=== PATIENT | female | born 1990 | race Caucasian/White ===

== ENCOUNTER 2023-02-21 11:00 | Outpatient (REF) | payer BC, SELFPAY ==
--- OUTSIDE RECORDS SUMMARY | 2023-02-21 11:56 | XMS_ITS | CCD ---
Author Name Unknown Address [id number] [address] [place] [address] Organization [facility] Care Team Providers Care Extrusion Die Coordinator Name Role Phone YVES ., DR CHEN Primary Care Unavailable HOY ., DR CHEN Admitting Unavailable HOY ., DR CHEN Attending Unavailable HOY ., DR CHEN Consulting Unavailable RISHABH CR Consulting Unavailable HOY ., DR CHEN Primary Care Unavailable HOY ., DR CHEN Admitting Unavailable HOY ., DR CHEN Attending Unavailable HOY ., DR CHEN Consulting Unavailable ZIEBER, DR AC Reyes Consulting Unavailable HOY ., DR CHEN Primary Care Unavailable CARLOS ., DR MORE Admitting Unavailable CARLOS ., DR MORE Attending Unavailable CARLOS ., DR MORE Consulting Unavailable HOY ., DR CHEN Admitting Unavailable HOY ., DR CHEN Attending Unavailable HOY ., DR CHEN Primary Care Unavailable Allergies Allergy Classification Reported Allergen(s) Allergy Type Date of Onset Reaction(s) Facility (1 source) Codeine Drug Allergy 02-26-2016 [facility] Problems Active Problems Problem Classification Problem Date Documented Da te Episodic/Chronic Headache; including migraine (4 sources) Migraine, unspecified, not intractable, without status migrainosus; Translations: [MIGRAINE UNS NOT INTRACT W/O SM] Onset: 11-05-2021 Chronic Residual codes; unclassified (4 sources) Localized edema; Translations: [LOCALIZED EDEMA] Onset: 05-07-2022 Episodic Past or Other Problems Problem Classification Problem Date Documented Date Episodic/Chronic Immunizations and screening for infectious disease (1 source) Encounter for screening for human papillomavirus (HPV); Translations: [ENC SCREENING HUMAN PAPILLOMAVIRUS] Onset: 12-04-2021 Episodic Other screening for suspected conditions (not mental disorders or infectious disease) (4 sources) Encounter for screening for malignant neoplasm of cervix; Translations: [ENC SCREENING MALIG NEOPLASM CERV] Onset: 12-03-2021 Episodic Results Test Name Value Interpretation Reference Range Facil ity US TITO DOP LEG RTon 05-08-19 23 US TITO DOP LEG RT EXAM: US TITO DOP LEG RT HISTORY: Localized edema right lower extremity edema COMPARISON: None. TECHNIQUE: Doppler color flow as well as spectral analysis were performed of the right lower extremity. FINDINGS: There is adequate flow, compressibility, or augmentation within the visualized deep venous structures of the right lower extremity. No evidence of deep venous thrombus. IMPRESSION: 1. No deep venous thrombus Electronically authenticated by: RISHABH CR Date: 2022-05-07 15:51 Normal [facility] PAP ACOG PANEL 2: 30 to 65on 12-09-2021 . . Normal [facility] Comment on above: Result Comment: Performed at: WB Performed By: #### [id number] #### [facility] [address] [address] [address] Poli Almanza Age Gdln ACOG Testing 30-65 Normal [facility] Comment on above: Performed By: #### [id number] #### [facility] [address] [address] [address] Poli Almanza DIAGNOSIS: Comment Normal [facility] Comment on above: Result Comment: NEGATIVE FOR INTRAEPITHE LIAL LESION OR MALIGNANCY. Performed at: WB Performed By: #### [id number] #### [facility] [address] [address] [address] Poli Almanza HPV Aptima Negative Normal Negative [facility] Comment on above: Result Comment: This nucleic acid amplif ication test detects fourteen high-risk HPV types (16,18,31,33,35,39,45,51,52,56,58,59,66,68) without differentiation. Performed at: =G Performed By: #### [id number] #### [facility] [address] [address] [address] Poli Almanza Methodology: Comment Normal [facility] Comment on above: Result Comment: This liquid based ThinPr ep(R) pap test was screened with the use of an image guided system. Performed at: WB Performed By: #### [id number] #### [facility] [address] [address] [address] Poli Almanza Note: Comment [facility] Comment on above: Result Comment: The Pap smear is a scree yosef test designed to aid in the detection of premalignant and malignant conditions of the uterine cervix. It is not a diagnostic procedure and should not be used as the sole means of detecting cervical cancer. Both false-positive and false-negative reports do occur. . Performed at: WB Performed By: #### [id number] #### [facility] [address] [address] [address] Poli Almanza Performed by: Comment Normal [facility] Comment on above: Result Comment: Bernie Galan, Cytot echnologist (ASCP) Performed at: WB Performed By: #### [id number] #### [facility] [address] [place] [address] Dr. Poli Almanza Specimen adequacy: Comment [facility] Comment on above: Result Comment: Satisfactory for evaluat ion. Endocervical and/or squamous metaplastic cells (endocervical component) are present. Performed at: WB Performed By: #### [id number] #### [facility] [address] [place] [address] Dr. Poli Almanza MRI BRAIN WO CONon MRI BRAIN CON EXAMINATION: MRI BRA IN [facility], 11/05/2021 3:14 PM EDT HISTORY: Migraine ; chronic daily migraine headaches COMPARISON: None. TECHNIQUE: MRI of the brain was performed without IV contrast. FINDINGS: CEREBRUM: No edema, hemorrhage, mass, acute infarction, or inappropriate atrophy. CEREBELLUM: No edema, hemorrhage, mass, acute infarction, or inappropriate atrophy. BRAINSTEM: No edema, hemorrhage, mass, acute infarction, or inappropriate atrophy. CSF SPACES: Ventricles, cisterns, and sulci are appropriate for age. No hydrocephalus, subarachnoid hemorrhage, or mass. SKULL: No mass or other significant visible lesion. SINUSES: Limited views demonstrate no significant mucosal thickening or fluid. ORBITS: Limited views are unremarkable. OTHER: Negative. IMPRESSION: 1. Normal MRI of the brain. Electronically authenticated by: AC CASTILLO Date: 2021-11-05 18:21 Normal [facility] Encounters Encounter Date Encounter Type Care Provider Facility Start: 05-07-2022 End: 05-08-[address] GUSTAVO MARINELLI . Facility:[facility] Start: 12-03-2021 End: 12-03-[address] GUSTAVO MARINELLI . Facility[facility] Start: 11-05-2021 End: 11-06-[address] GUSTAVO MARINELLI . Facility[facility] Payers Date Payer Category Payer Unknown [id number] 2.16.84 [id number] 1988 Unknown [id number] 2.16.84 [id number] 1988 Unknown [id number] 2.16.84 [id number] 1988 Unknown [id number] 2.16.84 [id number] 1959 Self-pay 1961 Unknown [id number] Summary Purpose Family History No Family History Records Found Advance Directives No Advanced Directives Records Found Additional Source Comments INFORMATION SOURCE (unrecogn ized section and content) DATE CREATED AUTHOR 05/14/2022 [facility] FOR RECORDS PERTAINING TO PATIENTS WHO ARE OR HAVE BEEN ENROLLED IN A CHEMICAL DEPENDENCY/SUBSTANCEABUSE PROGRAM, SOME INFORMATION MAY BE OMITTED. This clinical summary was aggregated from multiple sources. Caution should be exercised in using it in the provision of clinical care. This summary normalizes information from multiple sources, and as a consequence, information in this document may materially change the coding, format and clinical context of patient data. In addition, data may be omitted in some cases. CLINICAL DECISIONS SHOULD BE BASED ON THE PRIMARY CLINICAL RECORDS. [facility] [employer] provides no warranty or guarantee of the accuracy or completeness of information in this document.
[2023-02-21 11:59] LABS: SARS-CoV-2 Ag NEGATIVE (NEGATIVE)
[2023-02-21 14:26] LABS: SARS-CoV-2 NAA NOT DETECTED (NOT DETECTE)
== END 2023-02-21 11:01 | disposition home or self-care (01) ==
LOC: LAB 11:00
PROVIDERS: PCP Family Medicine; Visit Provider Family Medicine
DX: R09.81 Nasal congestion (principal); J34.89 Other specified disorders of nose and nasal sinuses
CPT/HCPCS: 87635; 87811

== ENCOUNTER 2023-04-16 15:45 | Outpatient (OUT) | payer BC, SELFPAY ==
--- OUTSIDE RECORDS SUMMARY | 2023-04-16 15:50 | XMS_ITS | CCD ---
Author Name Unknown Address Formerly [facility] [email or web address] [facility] [address] [place] [address] Organization [facility] Care Team Providers Care Medical Records Receptionist Name Role Phone YVES ., DR CHEN [...] HOY ., DR CHEN Primary Care Unavailable ALISA Preston Attending Provider Karissa Preston Attending Unavailable Karissa Preston Admitting Unavailable ARIANNA ORELLANA Attending Unavailable Unavailable Primary Care Provider Unavailabl e Allergies Allergy Classification Reported Allergen(s) Allergy Type Date of Onset Reaction(s) Facility (1 source) Codeine Drug Allergy 02-26-2016 [facility] Repository (1 source) Acetaminophen Drug Allergy 03-28-2023 [facility] Repository (1 source) Codeine Drug Allergy 03-28-2023 [facility] Repository (1 source) HYDROcodone Drug Allergy 03-28-2023 [facility] Repository (1 source) Codeine Drug Allergy 11-08-2017 Swelling [facility] Medications Current Medications Medication Drug Class(es) Dates Sig (Normalized) Sig (Original) ethinyl estradiol 0.035 mg / norgestimate 0.25 mg oral tablet (2 sources) Progestin, Estrogen Start: 12-16-2022 End: 04-03-2023 take 1 tablet by mouth in the morning Coos-Linyah 0.25-35 MG-MCG tablet Indications: Uses control Take 1 tablet by mouth in the morning. 28 tablet 12 12/16/2022 Active fluconazole 150 mg oral tablet (1 source) Azole Antifungal Start: 04-03-2023 End: 04-03-2023 take 1 tablet by mouth once, then take 1 tablet by mouth once fluconazole (Diflucan) 150 MG tablet Indications: Yeast infection Take 1 tablet (150 mg) by mouth 1 (one) time for 1 dose This is a 1 time dose, take single tablet by mouth. 1 tablet 1 04/03/2023 04/03/2023 Active metroNIDAZOLE 500 mg oral tablet (1 source) Nitroimidazole Antimicrobial Start: 04-03-2023 End: 04-10-2023 take 1 tablet by mouth in the morning metroNIDAZOLE (Flagyl) 500 MG tablet Indications: Vaginal discharge Take 1 tablet (500 mg) by mouth in the morning and 1 tablet (500 mg) before bedtime. Do all this for 7 days. Do not drink alcohol while taking this medication. 14 tablet 0 04/03/2023 04/10/2023 Active Problems Active Problems Problem Classification Problem Date Documented Date Episodic/Chronic Genitourinary symptoms and ill-defined conditions (1 source) Dysuria; Translations: [Dysuria] 04-03-2023 Episodic Headache; including migraine (4 sources) Migraine, unspecified, not intractable, without status migrainosus; Translations: [MIGRAINE UNS NOT INTRACT W/O SM] Onset: 11-05-2021 Chronic Immunizations and screening for infectious disease (2 sources) Encounter for screening for human papillomavirus (HPV); Translations: [Exposure to sexually transmissible disorder] Onset: 12-04-2021 04-03-2023 Episodic Mycoses (1 source) Mycosis; Translations: [Candidiasis, unspecified] 04-03-2023 Episodic Other female genital disorders (1 source) Other specified noninflammatory disorders of vagina; Translations: [Other specified noninflammatory disorders of vagina] Onset: 03-28-2023 Episodic Other female genital disorders (1 source) Vaginal discharge; Translations: [Other specified noninflammatory disorders of vagina] 04-03-2023 Episodic Residual codes; unclassified (4 sources) Localized edema; Translations: [LOCALIZED EDEMA] Onset: 05-07-2022 Episodic Urinary tract infections (1 source) Urinary tract infectious disease; Translations: [Urinary tract infection, site not specified] 04-03-2023 Episodic Past or Other Problems Problem Classification Problem Date Documented Da te Episodic/Chronic Other screening for suspected conditions (not mental disorders or infectious disease) (4 sources) Encounter for screening for malignant neoplasm of cervix; Translations: [ENC SCREENING MALIG NEOPLASM CERV] Onset: 12-03-2021 Episodic Results Test Name Value Interpretation Reference Range Facility Urinalysis macro (dipstick) panel (U)on 04-03-2023 Bilirubin, UA Negative Negative - 4(70) +++ mg/dL [facility] Blood, UA Negative Negative - 50 Fred/mcL [facility] Clarity, UA Clear [facility] re Color, UA Yellow [facility] Health[facility] Glucose, UA Negative Negative - 1999(110) ++++ mg/dL [facility] Interpretation and review of laboratory results Normal [facility] Ketones, UA Negative Negative - 160(16) ++++ mg/dL [facility] Leukocytes, UA Negative Negative - 500+++ Jenna/mcL [facility] Nitrite, UA Negative Negative - Positive [facility] pH, UA 6.5 5 - 9 [facility] Health[facility] Protein, UA Negative Negative - 1999(20) ++++ mg/dL [facility] Spec Grav, UA 1.020 1 - 1.03 [facility] Urobilinogen, UA 0.2 0.2 - 12 mg/dL [facility] Bacteria Vaginosis, NAAon Atopobium Vaginae Low - 0 Normal . [facility] Comment on above: Order Comment: Reaso n for Exam Vaginal discharge Performed By: #### C ANDIDA,NA, VAGINOSIS #### [facility] , BVAB2 Low - 0 Normal . [facility] Comment on above: Order Comment: Reaso n for Exam Vaginal discharge Performed By: #### C ANDIDA,NA, VAGINOSIS #### [facility] , Megasphaera Low - 0 Normal . [facility] Comment on above: Order Comment: Reaso n for Exam Vaginal discharge Result Comment: Calc ulate total score by adding the 3 individual bacterial vaginosis (BV) marker scores together. Total score is interpreted as follows: Total score 0-1: Indicates the absence of BV. Total score 2: Indeterminate for BV. Additional clinical data should be evaluated to establish a diagnosis. Total score 3-6: Indicates the presence of BV. This test was developed and its performance characteristics determined by [facility]. It has not been cleared or approved by the Food and Drug Administration. Performed By: #### C ANDIDA,NA, VAGINOSIS #### [facility] , Megan Albicans+Glabrata, N AAon 03-28-2023 Megan Albicans, KEZIA Negative Normal Negative [facility] Comment on above: Order Comment: Reaso n for Exam Vaginal discharge Result Comment: This test was developed and its performance characteristics determined by [facility]. It has not been cleared or approved by the Food and Drug Administration. Performed By: #### C ANDIDA,NA, VAGINOSIS #### [facility] , Megan Glabrata, KEZIA Negative Normal Negative [facility] Comment on above: Order Comment: Reaso n for Exam Vaginal discharge Result Comment: This test was developed and its performance characteristics determined by [facility]. It has not been cleared or approved by the Food and Drug Administration. Performed at: =[address] [id number] [employer] Custodian: Anna Lopez MD, Phone: [phone] PERFORMED BY: [facility] [address] [place] [address] PATHOLOGIST DOUGH PANNER FLAVIA HERNANDEZ M.D. Performed By: #### C ANDIDANA, VAGINOSIS #### [facility] , US TITO DOP LEG RTon 05-08-19 US TITO DOP LEG RT EXAM: US [...] by: RISHABH CR Date: 2022-05-07 15:51 Normal [facility] PAP ACOG PANEL 2: 30 to 65on 12-09-2021 . . Normal [facility] Comment on above: Result Comment: Perf ormed at: WB Performed By: #### [id number] #### [facility] [address] [address] [address] Poli Almanza Age Gdln ACOG Testing 30-65 Normal [facility] Comment on above: Performed By: #### [id number] #### [facility] [address] [address] [address] Poli Almanza DIAGNOSIS: Comment Normal [facility] Comment on above: Result Comment: NEGA TIVE FOR INTRAEPITHELIAL LESION OR MALIGNANCY. Performed at: WB Performed By: #### [id number] #### [facility] [address] [place] [address] Dr. Poli Almanza HPV Aptima Negative Normal Negative [facility] Comment on above: Result Comment: This nucleic acid amplification test detects fourteen high-risk HPV types (16,18,31,33,35,39,45,51,52,56,58,59,66,68) without differentiation. Performed at: =G Performed By: #### [id number] #### [facility] [address] [address] [address] Poli Almanza Methodology: Comment Normal [facility] Comment on above: Result Comment: This liquid based ThinPrep(R) pap test was screened with the use of an image guided system. Performed at: WB Performed By: #### [id number] #### [facility] [address] [address] [address] Poli Almanza Note: Comment Normal [facility] Comment on above: Result Comment: The Pap smear is a screening test designed to aid in the detection of premalignant and malignant conditions of the uterine cervix. It is not a diagnostic procedure and should not be used as the sole means of detecting cervical cancer. Both false-positive and false-negative reports do occur. . Performed at: WB Performed By: #### [id number] #### [facility] [address] [place], [place] [address] Dr. Poli Almanza Performed by: Comment Normal [facility] Comment on above: Result Comment: Callum Myles, Workers Compensation Claims Assistant (ASCP) Performed at: WB Performed By: #### [id number] #### [facility] [address] [place], [place] [address] Dr. Poli Almanza Specimen adequacy: Comment Normal [facility] Comment on above: Result Comment: Sati sfactory for evaluation. Endocervical and/or squamous metaplastic cells (endocervical component) are present. Performed at: WB Performed By: #### [id number] #### [facility] [address] [address] [address] Poli Almanza MRI BRAIN WO CONon MRI BRAIN WO CON EXAMINATION: MRI BRAIN WO CON, 11/05/2021 3:14 PM EDT HISTORY: Migraine ; [...] by: AC CASTILLO Date: 2021-11-05 18:21 Normal [facility] Vital Signs Date Time Vital Sign Value Performing Clinician Hannah goyal 04-03-2023 11:050500 Body height 154.9 cm Arianna SANCHEZ Work Phone: [facility] 04-03-2023 11:05-0500 Body mass index (BMI) [Ratio] 26.26 kg/m2 Arianna SANCHEZ Work Phone: [facility] 04-03-2023 11:05-0500 Body weight 63.05 kg Arianna SANCHEZ Work Phone: [facility] 04-03-2023 11:05-0500 Diastolic blood pressure 78 mm[Hg] Arianna SANCHEZ Work Phone: [facility] 04-03-2023 11:05-0500 Systolic blood pressure 116 mm[Hg] Arianna SANCHEZ Work Phone: [facility] Healthcare Encounters Encounter Date Encounter Type Care Provider Facility Start: 04-03-2023 End: 04-03-2023 ambulatory ARIANNA ORELLANA Not Available Start: 04-03-2023 End: 04-03-2023 Office outpatient visit 15 minutes Arianna SANCHEZ Work Phone: [facility] OB Comment on above: Vaginal discharge; STD exposure; Urinary tract infection without hematuria, site unspecified; Dysuria; Yeast infection Start: 03-28-2023 End: 03-28-2023 ambulatory Karissa Preston Facility:[facility] Start: 03-28-2023 End: 03-28-2023 ambulatory ALISA Preston Work Phone: [facility] Work Phone: Start: 03-28-2023 End: 03-28-2023 Departed Referred ALISA Preston Work Phone: [facility] [place] Work Phone: Start: 05-07-2022 End: 05-08-[address] GUSTAVO MARINELLI . Facility:[facility] Start: 12-03-2021 End: 12-03-[address] GUSTAVO MARINELLI . Facility:[facility] Start: 11-05-2021 End: 11-06-[address] GUTSAVO MARINELLI . Facility:[facility] Procedures Date Procedure Procedure Detail Performing Clinician Start: 04-03-2023 Urnls dip stick/tabl et rgnt non-auto w/o micrscp Arianna SANCHEZ Work Phone: Plan of Treatment Date Care Activity Detail Author Start: 06-11-2023 End: 06-11-2023 Patient encounter procedure 06/11/2023 3:00 PM EDT Office Visit [facility] [address] [place] [id number] Danial Dawson, DO [address] [place] [address] [place] [address] [facility] Atopobium vaginae DN A [Presence] in Vaginal fluid by KEZIA with probe detection [facility] Bacteria identified in Urine by Culture Urine culture Microbiology Routine Dysuria Ordered: 04/03/2023 [facility] Comment on above: Ordered: 04/03/2023 Bacterial vaginosis associated bacterium 2 DNA [Presence] in Vaginal fluid by KEZIA with probe detection [facility] CHLAMYDIA TRACHOMATI S (GENITO/STI) CHLAMYDIA TRACHOMATIS (GENITO/STI) Lab Routine STD exposure Ordered: 04/03/2023 [facility] Comment on above: Ordered: 04/03/2023 Megasphaera sp type 1 DNA [Presence] in Vaginal fluid by KEZIA with probe detection [facility] Neisseria gonorrhoea e DNA [Presence] in Unspecified specimen by KEZIA with probe detection Neisseria gonorrhea DNA probe, direct Lab Routine STD exposure Ordered: 04/03/2023 [facility] Comment on above: Ordered: 04/03/2023 SURESWAB(R) ADVANCED VAGINITIS PLUS, TMA SURESWAB(R) ADVANCED VAGINITIS PLUS, TMA Pathology and Cytology Routine Vaginal discharge Ordered: 04/03/2023 [facility] Work Phone: Comment on above: Ordered: 04/03/2023 [facility] Payers Date Payer Category Payer Unknown BCBS BCBS [id number] 2017-Present [phone] [address] [place] [address] [id number] 1988 Unknown [id number] 1988 Unknown [id number] 1988 Unknown [id number] 1988 Unknown [id number] 1988 Unknown [id number] 1959 Self-pay 1961 Unknown [id number] Unknown Selena BC/BS [id number] Unknown [id number] Social History Date Type Detail Facility Tobacco smoking status TNIS Unknown if ever smoked [facility] Work Phone: Start: 1990 Sex Assigned At Female F [facility] Start: 11-27-2022 Tobacco smoking status NHIS Never smoked tobacco [facility] Start: 11-27-2022 Tobacco use and exposure Smokeless tobacco non-user [facility] Start: 11-27-2022 Alcohol intake Lifetime non-d brissa (finding) [facility] Start: 11-27-2022 History of Social function [facility] Start: 11-27-2022 Tobacco use panel [facility] Start: 11-27-2022 Alcohol Comment caffeine: 1-2 cups per day coffee, tea [facility] Start: 12-07-2022 Gender identity Identifies as female gender (finding) [facility] Healthcare History of Present illness Narrative 04-03-2023 LAURA Vela - 04/03/2023 11:10 AM EST Note Date & Type Note Facility 04-03-2023 History of Presen t illness Narrative Reason for Appointment: Patient ID: Erica Hope is a 33 y.o. female who presents for yeast infection/UTI Patient presents today for Acute Visit appointment. Current Medications: has a current medication list which includes the following prescription(s): mono-linyah. Medical History: Active Ambulatory Problems Diagnosis Date Noted No Active Ambulatory Problems Resolved Ambulatory Problems Diagnosis Date Noted No Resolved Ambulatory Problems Past Medical History: Diagnosis Date Asthma (CMS/[facility]) Cerebrovascular accident (CMS/[facility]) H/O recurrent urinary tract infection (normal spontaneous vaginal delivery) 2014 S/P T&A (status post tonsillectomy and adenoidectomy) 2002 Seasonal allergies Spider veins Varicella zoster Family History Problem Relation Name Age of Onset Arthritis Mother Arthritis Father Microcephaly Son Social History Tobacco Use Smoking status: Never Smokeless tobacco: Never Substance Use Topics Alcohol use: Never Comment: caffeine: 1-2 cups per day coffee, tea Drug use: Never Past Surgical History: Procedure Laterality Date [place] MEDICATION MANAGEMENT asthma [place] MEDICATION MANAGEMENT Zyrtec- seasonal allergies VAGINAL DELIVERY 2014 - 4th degree Allergies Allergen Reactions Codeine Swelling Other Reaction(s): Unknown Review of Systems: Review of Systems Constitutional: Negative. HENT: Negative. Eyes: Negative. Respiratory: Negative. Cardiovascular: Negative. Gastrointestinal: Negative. Genitourinary: Negative. Musculoskeletal: Negative. Skin: Negative. Neurological: Negative. All other systems reviewed and are negative. Hematological: Negative. Endocrine: Negative. Allergic/Immunologic: Negative. Objective Physical Exam Constitutional: Appearance: Normal appearance. She is normal weight. Genitourinary: Vaginal discharge and bleeding present. Right Adnexa: not tender and no mass present. Left Adnexa: not tender and no mass present. Cervical discharge present. Cervical exam comments: menstrating. HENT: Head: Normocephalic. Cardiovascular: Rate and Rhythm: Normal rate. Pulses: Normal pulses. Pulmonary: Effort: Pulmonary effort is normal. Breath sounds: Normal breath sounds. Abdominal: Palpations: Abdomen is soft. Musculoskeletal: General: Normal range of motion. Neurological: General: No focal deficit present. Mental Status: She is alert and oriented to person, place, and time. Psychiatric: Mood and Affect: Mood normal. Behavior: Behavior normal. Thought Content: Thought content normal. Judgment: Judgment normal. Vitals and nursing note reviewed. Vitals: Estimated body mass index is 26.26 kg/m as calculated from the following: Height as of this encounter: 5' 1 . Weight as of this encounter: 139 lb. BP: 116/78 Patient's last menstrual period was 04/02/2023. Assessment/Plan Encounter Diagnoses Name Primary? Vaginal discharge STD exposure Urinary tract infection without hematuria, site unspecified Dysuria Pt presents today complaining of burning with urination and vaginal discharge. She was seen at an urgent care about a week ago and was treated for a yeast infection with diflucan. Pt still complains of symptoms. She said they sent her urine out for culture but it came back neg. Cultures obtained today. Urine sent out for culture. Flagyl and diflucan sent to pharmacy. Pt will be notified of results if further treatment necessary Documented by Angela Guido MA on behalf of: LAURA Vela documented in this encounter [facility] Evaluation note Note Date & Type Note Facility [facility] Evaluation note Note Date & Type Note Facility Evaluation note Diagnosis Vaginal discharge Leukorrhea, not specified as infective STD exposure Urinary tract infection without hematuria, site unspecified Dysuria Yeast infection documented in this encounter [facility] Summary Purpose Family History No Family History Records FoundNo Family History Records FoundNo Family History Records Found Advance Directives No Advanced Directives Records FoundNo Advanced Directives Records FoundNo Advanced Directives Records Found Chief Complaint and Reason for Visit Chief Complaint Vaginal discharge Additional Source Comments INFORMATION SOURCE (unrecogn ized section and content) DATE CREATED AUTHOR 05/14/2022 [facility] DATE CREATED AUTHOR AUTHOR'S ORGANIZ ATION 04/04/2023 [facility] DATE CREATED AUTHOR AUTHOR'S ORGANIZ ATION 04/04/2023 [facility] [employer] Care Teams (unrecognized sec tion and content) Team Status: Inactive Member Role Status Dates Karissa Preston APRN Attending Provider Active Start: March 28, 2023 End: March 28, 2023 Goals (unrecognized section and content) Goals may be documented in a n alternate section Reason for Visit (unrecogniz ed section and content) Reason Comments yeast infection/UTI FOR RECORDS PERTAINING TO PATIENTS WHO ARE [...] BE BASED ON THE PRIMARY CLINICAL RECORDS. [facility]. provides no warranty or guarantee of the accuracy or completeness of information in this document.
[2023-04-16 16:28] LABS: Estimated Average Glucose 103 mg/dL; Glycohemoglobin A1C 5.2 % (4.5-6.2)
[2023-04-16 16:54] LABS: Free T3 2.66 pg/mL (2.18-3.98); Glucose 83 mg/dL (74-106); Thyroid Stimulating Hormone 2.535 uIU/mL (0.358-3.740)
[2023-04-18 08:12] LABS: Estradiol <5.0 pg/mL (.); Progesterone <0.1 ng/mL (.); Thyroid Peroxidase (TPO) Ab 13 IU/mL (0-34)
[2023-04-18 11:10] LABS: C-Peptide, Serum 2.7 ng/mL (1.1-4.4); Insulin 9.7 uIU/mL (2.6-24.9)
[2023-04-18 16:09] LABS: Thyroglobulin Antibody <1.0 IU/mL (0.0-0.9)
[2023-04-21 16:09] LABS: Estrone, Serum 22 pg/mL (27-231)
[2023-04-23 00:07] LABS: Reverse T3, Serum 21.1 ng/dL (9.2-24.1)
[2023-04-23 17:10] LABS: Free Testosterone(Direct) <0.2 pg/mL (0.0-4.2); Testosterone 3 ng/dL (8-60)
[2023-04-24 06:09] LABS: Serotonin, Serum 81 ng/mL (31-207)
[2023-04-24 18:10] LABS: Cortisol, Free Dialysis, LCMS 0.175 ug/dL (.)
[2023-04-27 12:07] LABS: Thyroglobulin (TG-RIA) 4.4 ng/mL (.)
== END 2023-04-16 15:46 | disposition home or self-care (01) ==
LOC: LAB 15:45
PROVIDERS: PCP Family Medicine; Visit Provider Obstetrics & Gynecology
DX: E34.9 Endocrine disorder, unspecified (principal)
CPT/HCPCS: 36415; 82306; 82530; 82627; 82670; 82679; 82728; 82947; 83036; 83525; 84144; 84260; 84270; 84402; 84403; 84432; 84436; 84439; 84443; 84481; 84482; 84681; 86376; 86800

== ENCOUNTER 2023-06-11 20:26 | Outpatient (REF) | payer BC, SELFPAY ==
--- OUTSIDE RECORDS SUMMARY | 2023-06-11 20:34 | XMS_ITS | CCD ---
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 Name Role Phone YVES ., DR CHEN [...] Facility (1 source) Codeine Drug Allergy 02-26-2016 [facility] Repository (1 source) Acetaminophen Drug Allergy 03-28-2023 [facility] Repository (1 source) Codeine Drug Allergy 03-28-2023 [facility] Repository (1 source) HYDROcodone Drug Allergy 03-28-2023 [facility] Repository (1 source) Codeine Drug Allergy 11-08-2017 [facility] Medications Current Medications Medication Drug Class(es) Dates Sig (Normalized) Sig (Original) ethinyl estradiol 0.035 mg / norgestimate 0.25 mg oral tablet (2 sources) Progestin, Estrogen Start: 12-16-2022 End: 02-08-2024 take 1 tablet by mouth in the morning [place] 0.25-35 MG-MCG tablet Indications: Uses control Take [...] UA Negative Negative - 4(70) +++ mg/dL [facility] Blood, UA Negative Negative - 50 Fred/mcL [facility] Clarity, UA Clear [facility] Healthpr re Color, UA Yellow [facility] Healthcar [facility] Glucose, UA Negative Negative - 1999(110) ++++ mg/dL [facility] Interpretation and review of laboratory results Normal [facility] Ketones, UA Negative Negative - 160(16) ++++ mg/dL [facility] Leukocytes, UA Negative Negative - 500+++ Jenna/mcL [facility] Nitrite, UA Negative Negative - Positive [facility] pH, UA 6.5 5 - 9 [facility] Protein, UA Negative Negative - 1999(20) ++++ mg/dL [facility] Spec Grav, UA 1.020 1 - 1.03 [facility] Urobilinogen, UA 0.2 0.2 - 12 mg/dL [facility] Bacteria Vaginosis, NAAon Atopobium Vaginae Low - 0 Normal . [facility] Comment on above: Order Comment: Reaso n for Exam Vaginal discharge Performed By: #### C ANDIDA,NA, VAGINOSIS #### [facility] , BVAB2 Low - 0 Normal . [facility] Comment on above: Order Comment: Reaso n for Exam Vaginal discharge Performed By: #### C ANDIDA,NA, VAGINOSIS #### [facility] , Megasphaera Low - 0 Normal . [facility] Comment on above: Order Comment: Reaso n [...] developed and its performance characteristics determined by [employer]. It has not been cleared or approved by the Food and Drug Administration. Performed By: #### C ANDIDA,NA, VAGINOSIS #### [facility] , Megan Albicans+Glabrata, N AAon 03-28-2023 Megan Albicans, KEZIA Negative Normal Negative [facility] Comment on above: Order Comment: Reaso n for Exam Vaginal discharge Result Comment: This test was developed and its performance characteristics determined by [employer]. It has not been cleared or approved by the Food and Drug Administration. Performed By: #### C ANDIDA,NA, VAGINOSIS #### [facility] , Megan Glabrata, KEZIA Negative Normal Negative [facility] Comment on above: Order Comment: Reaso n for Exam Vaginal discharge Result Comment: This test was developed and its performance characteristics determined by [employer]. It has not been cleared or approved by the Food and Drug Administration. Performed at: =[facility] [employer] [id number] [employer] Operator: Anna Lopez MD, Phone: [phone] PERFORMED BY: [facility] [address] [place] [address] REPORTER FLAVIA HERNANDEZ M.D. Performed By: #### C ANDIDANA, VAGINOSIS #### [facility] , [place] TITO DOP LEG RTon 05-08-19 23 [...] by: RISHABH CR Date: 2022-05-07 15:51 Normal [facility] PAP ACOG PANEL 2: 30 to 65on 12-09-2021 . . Normal [facility] Comment on above: Result Comment: Perf ormed at: WB Performed By: #### [id number] #### [facility] [address] [place] [address] Dr. Poli Almanza Age Gdln ACOG Testing 30-65 Normal [facility] Comment on above: Performed By: #### [id number] #### [facility] [address] [address] [address] Poli Almanza DIAGNOSIS: Comment Normal [facility] Comment on above: Result Comment: NEGA TIVE FOR INTRAEPITHELIAL LESION OR MALIGNANCY. Performed at: WB Performed By: #### [id number] #### [facility] [address] [place] [address] Dr. Poli Almanza HPV Aptima Negative Normal Negative [facility] Comment on above: Result Comment: This nucleic acid amplification test detects fourteen high-risk HPV types (16,18,31,33,35,39,45,51,52,56,58,59,66,68) without differentiation. Performed at: =G Performed By: #### [id number] #### [facility] [address] [place] [address] Dr. Poli Almanza Methodology: Comment Normal [facility] Comment on above: Result Comment: This liquid based ThinPrep(R) pap test was screened with the use of an image guided system. Performed at: WB Performed By: #### [id number] #### [facility] [address] [place] [address] Dr. Poli Almanza Note: Comment Normal [facility] Comment on above: Result Comment: The Pap smear is a screening test designed to aid in the detection of premalignant and malignant conditions of the uterine cervix. It is not a diagnostic procedure and should not be used as the sole means of detecting cervical cancer. Both false-positive and false-negative reports do occur. . Performed at: WB Performed By: #### [id number] #### [facility] [address] [place] [address] Dr. Poli Almanza Performed by: Comment Normal [facility] Comment on above: Result Comment: Callum Myles, Senior Staff Consultant (ASCP) Performed at: WB Performed By: #### [id number] #### [facility] [address] [address] [address] Poli Almanza Specimen adequacy: Comment Normal [facility] Comment on above: Result Comment: Sati sfactory for evaluation. Endocervical and/or squamous metaplastic cells (endocervical component) are present. Performed at: WB Performed By: #### [id number] #### [facility] [address] [place], [place] [address] Dr. Poli Almanza MRI BRAIN WO CONon [...] by: AC CASTILLO Date: 2021-11-05 18:21 Normal [facility] Vital Signs Date Time Vital Sign Value Performing Clinician Hannah lity 04-03-2023 11:05-0500 Body height 154.9 cm Arianna SANCHEZ Work Phone: [facility] 04-03-2023 11:05-0500 Body mass index (BMI) [Ratio] 26.26 kg/m2 Arianna SANCHEZ Work Phone: [facility] 04-03-2023 11:05-0500 Body weight 63.05 kg Arianna SANCHEZ Work Phone: [facility] 04-03-2023 11:05-0500 Diastolic blood pressure 78 mm[Hg] Arianna SANCHEZ Work Phone: [facility] 04-03-2023 11:05-0500 Systolic blood pressure 116 mm[Hg] Arianna SANCHEZ Work Phone: [facility] Encounters Encounter Date Encounter Type Care Provider Facility Start: 04-03-2023 End: 04-03-2023 ambulatory ARIANNA ORELLANA Not Available Start: 04-03-2023 End: 04-03-2023 Office outpatient visit 15 minutes Arianna SANCHEZ Work Phone: [facility] Comment on above: Vaginal discharge; STD exposure; Urinary tract infection without hematuria, site unspecified; Dysuria; Yeast infection Start: 03-28-2023 End: 03-28-2023 ambulatory Karissa Preston Facility:[facility] Start: 03-28-2023 End: 03-28-2023 ambulatory ALISA Preston Work Phone: [facility] Work Phone: Start: 03-28-2023 End: 03-28-2023 Departed Referred ALISA Preston Work Phone: [facility] [place] Work Phone: Start: 05-07-2022 End: 05-08-[address] GUSTAVO MARINELLI . Facility: Start: 12-03-2021 End: 12-03-[address] GUSTAVO MARINELLI . Facility: Start: 11-05-2021 End: 11-06-[address] GUSTAVO MARINELLI . Facility: Procedures Date Procedure Procedure Detail Performing Clinician Start: 04-03-2023 Urnls dip stick/tabl et rgnt non-auto w/o micrscp Arianna SANCHEZ Work Phone: Plan of Treatment Date Care Activity Detail Author Start: 06-11-2023 End: 06-11-2023 Patient encounter procedure 06/11/2023 3:00 PM EDT Office Visit [facility] [address] [place] [address] Danial Dawson, DO [address] [place] [address] [facility] Atopobium vaginae DN A [Presence] in Vaginal fluid by KEZIA with probe detection [facility] Bacteria identified in Urine by Culture Urine culture Microbiology Routine Dysuria Ordered: 04/03/2023 [facility] Comment on above: Ordered: 04/03/2023 Bacterial vaginosis associated bacterium 2 DNA [Presence] in Vaginal fluid by KEZIA with probe detection [facility] CHLAMYDIA TRACHOMATI S (GENITO/STI) CHLAMYDIA TRACHOMATIS (GENITO/STI) Lab Routine STD exposure Ordered: 04/03/2023 [facility] Comment on above: Ordered: 04/03/2023 Megasphaera sp type 1 DNA [Presence] in Vaginal fluid by KEZIA with probe detection [facility] Neisseria gonorrhoea e DNA [Presence] in Unspecified specimen by KEZIA with probe detection Neisseria gonorrhea DNA probe, direct Lab Routine STD exposure Ordered: 04/03/2023 [facility] Comment on above: Ordered: 04/03/2023 SURESWAB(R) ADVANCED VAGINITIS PLUS, TMA SURESWAB(R) ADVANCED VAGINITIS PLUS, TMA Pathology and Cytology Routine Vaginal discharge Ordered: 04/03/2023 [facility] Work Phone: Comment on above: Ordered: 04/03/2023 [facility] Payers Date Payer Category Payer Unknown BCBS BCBS [id number] 2017-Present [phone] [address] [place] [address] [id number] 1988 Unknown [id number] 1988 Unknown [id number] 1988 Unknown [id number] 1988 Unknown [id number] 1988 Unknown [id number] 1961 Self-pay 1961 Unknown [id number] Unknown Selena BC/BS [id number] Unknown [id number] Social History Date Type Detail Facility Tobacco smoking status NHIS Unknown if ever smoked [facility] Work Phone: Start: 1990 Sex Assigned At Female F [facility] Start: 11-27-2022 Tobacco smoking status [...] Gender identity Identifies as female gender (finding) [facility] History of Present illness Narrative 04-03-2023 [...] Problems Past Medical History: Diagnosis Date Asthma (CMS/HCC) Cerebrovascular accident (CMS/HCC) H/O recurrent urinary tract infection (normal spontaneous [...] Never Past Surgical History: Procedure Laterality Date [place] MEDICATION [place] asthma [place] Zyrtec- seasonal allergies VAGINAL DELIVERY [...] Note Facility Evaluation note No assessment information availa [facility] Work Phone: Evaluation note Note Date & [...] and content) DATE CREATED AUTHOR 05/14/2022 [facility] DATE CREATED AUTHOR AUTHOR'S ORGANIZ ATION 04/04/2023 [facility] DATE CREATED AUTHOR AUTHOR'S ORGANIZ ATION 04/04/2023 [facility] EPIC Care Teams (unrecognized sec [...] BE BASED ON THE PRIMARY CLINICAL RECORDS. [facility] [employer] provides no warranty or guarantee of the accuracy or completeness of information in this document.
[2023-06-17 14:09] LABS: Age Gdln ACOG Testing Note (.); HPV Aptima Negative (Negative); IGP, Aptima HPV, rfx 16/18,45 Note (.)
== END 2023-06-11 20:27 | disposition home or self-care (01) ==
LOC: LAB 20:26
PROVIDERS: PCP Family Medicine; Visit Provider Obstetrics & Gynecology
DX: Z01.419 Encounter for gynecological examination (general) (routine) without abnormal findings (principal)
CPT/HCPCS: 87624; G0145

== ENCOUNTER 2024-06-16 20:18 | Outpatient (REF) | payer BC, SELFPAY ==
[2024-06-21 16:08] LABS: Age Gdln ACOG Testing Note (.); HPV Aptima Negative (Negative); IGP, Aptima HPV, rfx 16/18,45 Note (.)
== END 2024-06-16 20:19 | disposition home or self-care (01) ==
LOC: LAB 20:18
PROVIDERS: PCP Family Medicine; Visit Provider Obstetrics & Gynecology
DX: Z01.419 Encounter for gynecological examination (general) (routine) without abnormal findings (principal)
CPT/HCPCS: 87624; 88175

== ENCOUNTER 2024-10-11 16:54 | Outpatient (OUT) | payer BC, SELFPAY ==
--- OUTSIDE RECORDS SUMMARY | 2024-10-05 10:55 | XMS_ITS ---
Author Organization [facility] [place] Address [address] [place] [address] Care Team Providers Care Contracts Law Professor Name Role Phone Sandeep Jimenez Primary Care Provider REASON FOR VISIT rf emgality- NEEDS PA Medications Medication SIG (Take, Route, Fr equency, Duration) Notes Start Date End Date Status Emgality 120 MG/ML inject 120 mg Subcut aneous monthly for 30 days 1 syringe 10/03/2022 Active Encounters Encounter Location Date Provider Diagnosis [address] [address] 10/05/2024 Sandeep Jimenez Plan Of Treatment Medication Medication Name Sig Start Date Stop Date Notes Emgality 120 MG/ML inject 120 mg Subcut aneous monthly for 30 days 10/03/2022 1 syringe Progress Notes * Erica HOPE ADOB:[birth year] (34 yo F)Acc No.[id number]:10/05/2024 Patient: Erica BRODERICK :1990 A ge:34 Y S ex:Female Address:[address] [place], [address] * Refills Refill Emgality Solution Auto-injector, 120 MG/ML, Subcutaneous, 1 Each, inject 120 mg, monthly, 30 days, Refills=0 * true * Date: Generated for Printi ng/Faxing/eTransmitting on: 0 10/11/2024 04:59 PM EDT
--- OUTSIDE RECORDS SUMMARY | 2024-10-11 12:00 | XMS_ITS ---
Author Organization [facility] in [place] Address [address] [place] [address] Care Team Providers Care Assembly Cleaner Name Role Phone Sandeep Jimenez Primary Care Provider Allergies Allergen (clinical drug ingredient) Drug/Non Drug Allergy documented on EMR Reaction Allergy Type Onset Date Status codeine Codeine swelling Drug Allergy Active REASON FOR VISIT yearly wellness exam Medications Medication SIG (Take, Route, Frequency, Duration) Notes Start Date End Date Status Cetirizine HCl 10 MG 1 tablet Orally Onc e a day 08/20/2023 Active Benadryl Active Fluticasone-Salmeterol 113-14 MCG/ACT 2 puff Inhalation Twice a day for 30 days 03/29/2024 Active Emgality 120 MG/ML inject 120 mg Subcutaneous monthly for 30 days 1 syringe 10/03/2022 Active Promethazine HCl 25 MG 1 tablet as neede d Orally q6h for 5 days 10/11/2024 Active Nurtec 75 MG 1 tablet on the tong ue and allow to dissolve - as needed Orally q day for 30 day(s) 08/20/2023 Active Pristiq 50 MG 1 tablet Orally Once a day for 30 days 10/11/2024 Active Social History Tobacco Use: Social History Observation Description Date Details (start date - stop date) Never Smoker NA - NA Tobacco Use/Smoking Question Answer Notes Patient is a nonsmoker AUDIT-C (Standard) Question Answer Notes Did you have a drink contain ing alcohol in the past year? Yes How often did you have a dri nk containing alcohol in the past year? Monthly or less (1 point) How many drinks did you have on a typical day when you were drinking in the past year? 3 or 4 drinks (1 point) How often did you have six o r more drinks on one occasion in the past year? 2 to 3 times per week (3 points) Points 5 Interpretation Positive Problems Problem Type SNOMED Code ICD Code Onset Dates Problem Status W/U Status Risk Notes Problem Well adult (497553898) Well adult (Z00.00) Active confirmed Problem Unintentional weight loss (271592079) Unintentional weight loss (R63.4) Active confirmed Vital Signs Blood pressure systolic 102 mm Hg 10/12/19 25 Blood pressure diastolic 72 mm Hg 025 Height 61 in 10/11/2024 Weight 114.4 lbs 10/11/2024 BMI 21.61 kg/m2 10/11/2024 Encounters Encounter Location Date Provider Diagnosis [facility] [address] [place] [address] 10/11/2024 Sandeep Jimenez Well adult Z00.00 ; Unintentional weight loss R63.4 and Migraine G43.909 Assessments Encounter Date Diagnosis (ICD Code) Assessment Notes Treatment Notes Treatment Clinical Notes Section Notes 10/11/2024 Well adult (ICD-10 - Z00.00) 10/11/2024 Unintentional weight loss (ICD-10 - R63.4) needs labs 10/11/2024 Migraine (ICD-10 - G43.909) emgality has been very effective - Less than 5 a month now and not as sever - previous to the emgality [facility] daily headaches Plan Of Treatment Medication Medication Name Sig Start Date Stop Date Notes Promethazine HCl 25 MG 1 tablet as neede d Orally q6h for 5 days 10/11/2024 Pristiq 50 MG 1 tablet Orally Once a day for 30 days 10/11/2024 Treatment Notes Assessment Notes Unintentional weight loss needs labs Migraine emgality has been ve ry effective - Less than 5 a month now and not as sever - previous to the emgality [facility] daily headaches Pending Test Test Name Order Date HEMOGLOBIN A1C (GLYCO) 10/11/2024 IRON, TOTAL 10/11/2024 LIPID PANEL (CHOL/TRIG/HDL/LDL) 10/12/19 25 THYROID ANTIBODIES 10/11/2024 THYROID PANEL (T4/TSH/FREE T3) CMP (COMP MET EASON) w/eGFR CKD-EPI 2024 CBC WITH DIFF 10/11/2024 Progress Notes * Erica HOPE ADOB:[birth year] (34 yo F)Acc No.[id number]:10/11/2024 UNLOCKED PROGRESS NOTE Progress Note Patient: Erica BRODERICK Provider: Rios Jimenez ([facility])MD :1990 A ge:34 Y S ex:Female Date:10/11/2024 Address:[facility] [address], [place], [id number] Check In:04:02 PM ESTCheck O ut:04:41 PM EST Subjective: * Chief Complaints: * 1 . Yearly wellness exam. * HPI: G eneral: some hair loss + FH - thyroid - not sure what type unexpected weith loss - but was doing Keto and stopped that bue weihgt not demetrice gback up. D epression Screening: PHQ-2 (2015 Edition) L ittle interest or pleasure in doing things??Not at all F eeling down, depressed, or hopeless? N ot at all T otal Score 0 * ROS: E ENT: hearing changes d enies, denies. v isual changes d enies, denies. n on-healing mouth sores d enies, denies. s wollen glands or neck lumps?denies, denies. h oarseness d enies, denies. s ore throat d enies, denies. d ifficulty swallowing d enies, denies. n ose bleeds d enies, denies. n leticia congestion d enies, denies. e ar ache d enies, denies. e ar discharge d enies, denies.?ringing in ears d enies, denies. l ight sensitivity d enies, denies. e ye pain denies, denies. b lurring d enies, denies. e ye irritation d enies, denies. d ouble vision d enies, denies. v ision loss d enies, denies. G eneral/Constitutional: Sweats: D enies, Denies. F atigue d enies, denies.?Sleep problems d enies, denies. A norexia d enies, denies. M alaise d enies, denies. W eight loss d enies, denies. F atigue or Weakness d enies, denies. F ever or Chills d enies, denies. C ardiovascular: Shortness of Breath w/lying flat d enies, denies. L ightheadedness/dizziness d enies, denies. C hest tightness/ heavy pressure d enies, denies.?Swelling of legs, ankles, or feet d enies, denies. W aking up with shortness of breath denies, denies. C hest pain d enies, denies. P alpitations d enies, denies.?Weight gain d enies, denies. R espiratory: Chronic or frequent cough d enies, denies. C oughing up blood d enies, denies. D ifficulty breathing d enies, denies. P roductive cough?denies, denies. S noring d enies, denies. S hortness of breath that awakens from sleep (PND) d enies, denies. C hest pain d enies, denies. S putum production d enies, denies. W heezing d enies, denies. M usculoskeletal: Joint pain d enies, denies. J oint Fluid d enies, denies. B ack pain d enies, denies. K nee pain d enies, denies. N colton pain d enies, denies. J oint Stiffness d enies, denies. M uscle cramps d enies, denies. Weakness of muscles d enies, denies. A rthritis d enies, denies. M uscle aches?denies, denies. P ain in shoulder(s) d enies, denies. S wollen joints d enies, denies. * Medical History: M edical History Verified. * Surgical History: T onsillectomy , Tubal , D&C . * Family History: F ather: alive. M other: alive. S ister(s): alive, diagnosed with Other malignant neoplasm of unspecified site. S on(s): alive, Autism. 1 brother(s) , 3 sister(s) - healthy. 2 son(s) - healthy. . * Social History: T obacco Use: T obacco Use/Smoking P atient is a n onsmoker D rug/Alcohol: A ZOYA-C (Standard) D id you have a drink containing alcohol in the past year? Y es H ow often did you have a drink containing alcohol in the past year? M onthly or less (1 point) H ow many drinks did you have on a typical day when you were drinking in the past year? 3 or 4 drinks (1 point) H ow often did you have six or more drinks on one occasion in the past year? 2 to 3 times per week (3 points) P oints 5 I nterpretation P ositive * Medications: T aking Benadryl , Taking Cetirizine HCl 10 MG Tablet 1 tablet Orally Once a day , Taking Emgality(Galcanezumab-gnlm) 120 MG/ML Solution Auto-injector inject 120 mg Subcutaneous monthly , Notes to Pharmacist: 1 syringe, Taking Fluticasone- Salmeterol 113-14 MCG/ACT Aerosol Powder Breath Activated 2 puff Inhalation Twice a day , Taking Nurtec(Rimegepant Sulfate) 75 MG Tablet Disintegrating 1 tablet on the tongue and allow to dissolve - as needed Orally q day , Medication List reviewed and reconciled with the patient * Allergies: C odeine: swelling. Objective: * Vitals: W t:114.4lbs, Ht: 61 in, BP:102/72mm Hg, BMI:21.61Index, Ht-cm: 154.94 cm, Wt-k.89 kg. * Examination: P hysical Exam: GENERAL: w ell developed, well nourished, in no acute distress , well developed, well nourished, in no acute distress. HEAD: n ormocephalic/atraumatic , normocephalic/atraumatic.? EYES: p upils equal, round and reactive to light, conjunctivae and sclerae normal , pupils equal, round and reactive to light, conjunctivae and sclerae normal.? EARS: n o deformity or lesion of external ear, canals and TM appear normal bilaterally, TM's intact, not inflamed with normal light reflex, hearing grossly normal to conversational speech , no deformity or lesion of external ear, canals and TM appear normal bilaterally, TM's intact, not inflamed with normal light reflex, hearing grossly normal to conversational speech. NOSE: n o deformity, discharge, inflammation, or lesions , no deformity, discharge, inflammation, or lesions. MOUTH: m ucous membranes moist, normal oropharynx and posterior pharynx without lesions or exudates, tongue normal, dentition normal , mucous membranes moist, normal oropharynx and posterior pharynx without lesions or exudates, tongue normal, dentition normal. NECK: n colton supple, no masses or palpable cervical nodes, trachea midline, thyroid without nodules, masses, tenderness, or enlargement , neck supple, no masses or palpable cervical nodes, trachea midline, thyroid without nodules, masses, tenderness, or enlargement. CHEST: n o chest wall deformity, no chest wall tenderness , no chest wall deformity, no chest wall tenderness. LUNGS: n ormal respiratory effort and clear to auscultation, no wheezes, rales, or rhonchi, good air exchange , normal respiratory effort and clear to auscultation, no wheezes, rales, or rhonchi, good air exchange. CARDIO: r egular rate and rhythm, normal S1 and S2, nor murmur, rub, or gallop , regular rate and rhythm, normal S1 and S2, nor murmur, rub, or gallop. PULSES: n ormal capillary refill , normal capillary refill.? ABDOMEN: s oft, non-distended, non-tender, no masses , soft, non-distended, non-tender, no masses. MUSCULOSKELETAL: n o deformity or scoliosis noted, normal range of motion, joints normal, no erythema, edema, effusion, or ecchymosis , no deformity or scoliosis noted, normal range of motion, joints normal, no erythema, edema, effusion, or ecchymosis. EXTREMITY: n o clubbing, cyanosis, edema, or deformity with normal ROM in both upper and lower bilateral extremities , no clubbing, cyanosis, edema, or deformity with normal ROM in both upper and lower bilateral extremities. NEUROLOGIC: g rossly normal , grossly normal. SKIN: n o rashes, ulcerations, or suspicious lesions , no rashes, ulcerations, or suspicious lesions. LYMPH NODES: n o cervical adenopathy, nodes normal , no cervical adenopathy, nodes normal. MENTAL STATUS: a lert and oriented x3, normal mood and affect , alert and oriented x3, normal mood and affect. Assessment: * Assessment: 1. W ell adult - Z00.00 (Primary) 2 . U nintentional weight loss - R63.4? 3. M igraine - G43.909 Plan: * Treatment: 2. U nintentional weight loss Notes: needs labs 3. M igraine Start Promethazine HCl Tablet, 25 MG, 1 tablet as needed, Orally, q6h, 5 days, 20, Refills 1. ? Notes: emgality has been very effective - Less than 5 a month now and not as sever - previous to the emgality [facility] daily headaches * Procedure Codes: 3 074F DIABETIC SYSTOLIC BP, 3078F DIABETIC DIASTOLIC BP * * Electronic signature of Sandeep Jimenez MD, [phone] on 10/11/2024 at 04:59 PM EDT Sign off status: Pending Visit Status: Ryan RINCON (Check Out) * Provider: Rios Jimenez ([facility])MD Date: 10/11/2024 Generated for Chris jonas/Gisela/Adiaitting on: 0 10/11/2024 04:59 PM EDT History and Physical Notes * HPI (History of Present Illness) Category Sub-Category Detail Notes Category Not es General some hair loss + FH - thyroid - not sure what type unexpected weith loss - but was doing Keto and stopped that bue weihgt not demetrice gback up Depression Screening PHQ-2 (2015 Edition) Little interest or pleasure in doing things?: Not at all Feeling down, depressed, or hopeless?: N ot at all Total Score: 0 Examination Category Sub-Category Detail Notes Category Not es Physical Exam GENERAL: well developed, well nourished, in no acute distress , well developed, well nourished, in no acute distress HEAD: normocephalic/atraum atic , normocephalic/atraumatic EYES: pupils equal, round and reactive to light, conjunctivae and sclerae normal , pupils equal, round and reactive to light, conjunctivae and sclerae normal EARS: no deformity or lesi on of external ear, canals and TM appear normal bilaterally, TM's intact, not inflamed with normal light reflex, hearing grossly normal to conversational speech , no deformity or lesion of external ear, canals and TM appear normal bilaterally, TM's intact, not inflamed with normal light reflex, hearing grossly normal to conversational speech NOSE: no deformity, discha rge, inflammation, or lesions , no deformity, discharge, inflammation, or lesions MOUTH: mucous membranes linda st, normal oropharynx and posterior pharynx without lesions or exudates, tongue normal, dentition normal , mucous membranes moist, normal oropharynx and posterior pharynx without lesions or exudates, tongue normal, dentition normal NECK: neck supple, no mass es or palpable cervical nodes, trachea midline, thyroid without nodules, masses, tenderness, or enlargement , neck supple, no masses or palpable cervical nodes, trachea midline, thyroid without nodules, masses, tenderness, or enlargement CHEST: no chest wall deform ity, no chest wall tenderness , no chest wall deformity, no chest wall tenderness LUNGS: normal respiratory e ffort and clear to auscultation, no wheezes, rales, or rhonchi, good air exchange , normal respiratory effort and clear to auscultation, no wheezes, rales, or rhonchi, good air exchange CARDIO: regular rate and rhy thm, normal S1 and S2, nor murmur, rub, or gallop , regular rate and rhythm, normal S1 and S2, nor murmur, rub, or gallop PULSES: normal capillary ref ill , normal capillary refill ABDOMEN: soft, non-distended, non-tender, no masses , soft, non-distended, non- tender, no masses RECTAL: MUSCULOSKELETAL: no deformity or scol iosis noted, normal range of motion, joints normal, no erythema, edema, effusion, or ecchymosis , no deformity or scoliosis noted, normal range of motion, joints normal, no erythema, edema, effusion, or ecchymosis EXTREMITY: no clubbing, cyanosi s, edema, or deformity with normal ROM in both upper and lower bilateral extremities , no clubbing, cyanosis, edema, or deformity with normal ROM in both upper and lower bilateral extremities NEUROLOGIC: grossly normal , dank ssly normal SKIN: no rashes, ulceratio ns, or suspicious lesions , no rashes, ulcerations, or suspicious lesions LYMPH NODES: no cervical adenopat hy, nodes normal , no cervical adenopathy, nodes normal MENTAL STATUS: alert and oriented x 3, normal mood and affect , alert and oriented x3, normal mood and affect
--- OUTSIDE RECORDS SUMMARY | 2024-10-11 12:50 | XMS_ITS ---
Author Organization [facility] in [place] Address [address] [place] [address] Care Team Providers Care Metal Plater Name Role Phone Sandeep Jimenez Primary Care Provider REASON FOR VISIT anxiety meds Encounters Encounter Location Date Provider Diagnosis [address] [address] 10/11/2024 Sandeep Jimenez Plan Of Treatment No Information Progress Notes * Erica HOPE ADOB:[birth year] (34 yo F)Acc No.[id number]:10/11/2024 UNLOCKED PROGRESS NOTE Patient: Erica BRODERICK :1990 A ge:34 Y S ex:Female [address] [facility] [address] * * Date:
--- OUTSIDE RECORDS SUMMARY | 2024-10-11 16:59 | XMS_ITS | Clinical Summary ---
Author Organization [facility] Address [address] [place], [place] [id number] Care Team Providers Care Case Work Aide Name Role Phone Alina Pineda Primary Care Provi azael Rogers Kline MD Unavailable [phone] Ira Cline (Hist) Unavailable [phone] Medications No known medications Active Problems Patient Care Coordination No te Formatting of this note migh t be different from the original. 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 Plan: cont care with Dr. Barahona and Dr. Kline Consults: Specialty: peds neurology Dr. Arriaza See consult note dated 04/25/14 Delivery Plan: Date: , Location: [place] vs [facility] Mode of delivery: Expectant Delivery provider:Laborist with MFM assist as needed floor: Routine Plan:per Neuro- unless there was a significant change in the size of the frontal horn cysts, no further neurological work up would be necessary, although one could consider a head ultrasound int he period to confirm whether these are, in fact, connatal cysts . 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 Social History Tobacco Use Types Packs/Day Years Used Date Smoking Tobacco: Never Alcohol Use Standard Drinks/Week Comments Not Asked 0 (1 standard drink = 0.6 oz pur e alcohol) Comments Unknown Sex and Gender Information Value Date Recorded Sex Assigned at Not on file Legal Sex Female 12:13 PM EST Gender Identity Not on file Sexual Orientation Not on file Last Filed Vital Signs Vital Sign Reading Time Taken Comments Blood Pressure - - Pulse - - Temperature - - Respiratory Rate - - Oxygen Saturation - - Inhaled Oxygen Concentration - - Weight 53.5 kg (118 lb) 05/13/2014 9:36 AM EDT Height 154.9 cm (5' 1 ) 05/13/2014 9:36 AM EDT Body Mass Index 22.3 05/13/2014 9:36 AM EDT Plan of Treatment Health Maintenance Due Date Last Done Comments Anxiety Screening 2006 Depression Screening 2006 HIV Screening 2006 Hepatitis C Screening 2006 DTaP,Tdap,Td Vaccine (1 - Tdap) 2007 Hepatitis B Vaccine (1 of 3 - 19+ 3-dose series) 03/18 Cervical Cancer Screening 2009 HPV Vaccine (1 - 3-dose SCDM series) 2015 Influenza Vaccine (#1) 2024 Insurance BLUE CARD PPO OOS Care Teams Case Work Aide Relationship Specialty Start Date End Date Alina Pineda DO [address] [place] [address] PCP - General Obstetrics 04/12/14 [place] [address] [place] [address] Environmental Professional 04/25/14 Ira Cline (Hist) [address] [place] [address] Pediatrics 04/25/14
--- OUTSIDE RECORDS SUMMARY | 2024-10-11 16:59 | XMS_ITS | Encounter Summary ---
Author Organization [facility] Address [address] [facility] [place] [address] Care Team Providers Care Pot Maker Name Role Phone Unavailable Primary Care Provider Unavailabl e Encounter Details Date Type Department Care Team (Late st Contact Info) Description 05/09/2023 Abstract [facility] [address] [place] [id number] Gayathri Narayan LPN [address] [facility] [place] [address] [place] [address] Social History Tobacco Use Types Packs/Day Years Used Date Smoking Tobacco: Never Smokeless Tobacco: Never Alcohol Use Standard Drinks/Week Comments Never 0 (1 standard drink = 0.6 oz pure alcohol) caffeine: 1-2 cups per day coffee, tea Comments Unknown Sex and Gender Information Value Date Recorded Sex Assigned at Female 12/07/2022 10:02 AM EDT Legal Sex Female 7:20 PM EDT Gender Identity Female 12/07/2022 10:02 AM EDT Sexual Orientation Not on file documented as of this encounter Plan of Treatment Not on file documented as of this encounter Visit Diagnoses Not on filedocumented in this encounter
--- OUTSIDE RECORDS SUMMARY | 2024-10-11 16:59 | XMS_ITS | Clinical Summary ---
Author Organization [facility] tem Address [facility] [place] [address] [place] [address] Care Team Providers Care Supervisor Bindery Name Role Phone Victor Manuel Jimenez MD Primary Care Provider + Allergies Active Allergy Reactions Criticality Noted Date Comments Codeine 11/08/2017 Medications norethindrone ac-eth estradiol (FEMHRT 02/28) 1-5 mg-mcg tablet Take by mouth daily. Active oseltamivir (TAMIFLU) 75 mg capsule Take 1 capsule (75 mg total) by mouth in the morning and 1 capsule (75 mg total) before bedtime. Active benzonatate (TESSALON PERLES) 100 mg capsule Take 1 capsule (100 mg total) by mouth every 8 (eight) hours. 21 capsule 03/26/2024 Active Social History Tobacco Use Types Packs/Day Years Used Date Smoking Tobacco: Never Smokeless Tobacco: Never Alcohol Use Standard Drinks/Week Comments Not Asked 1 (1 standard drink = 0.6 oz pur e alcohol) Childcare Answer Date Recorded Childcare Unknown 08/05/2018 Employment Answer Date Recorded Employment Unknown 08/05/2018 Hunger Screening Answer Date Recorded Within the past 12 months we worried whether our food would run out before we got money to buy more. Never True 03/26/2024 Within the past 12 months th e food we bought just didn't last and we didn't have money to get more. Never True 03/26/2024 Purpose - Life Answer Date Recorded Purpose and direction in life Unknown Comments No Sex and Gender Information Value Date Recorded Sex Assigned at Not on file Legal Sex Female 12:11 PM EDT Gender Identity Not on file Sexual Orientation Not on file Last Filed Vital Signs Vital Sign Reading Time Taken Comments Blood Pressure 104/66 03/26/2024 3:58 PM EST Pulse 84 03/26/2024 5:05 PM EST Temperature 36.8 C (98.2 F) 03/26/2024 3:58 PM EST Respiratory Rate 16 03/26/2024 5:05 PM EST Oxygen Saturation 95% 03/26/2024 5:05 PM EST Inhaled Oxygen Concentration - - Weight 62.6 kg (138 lb) 03/26/2024 3:58 PM EST Height 154.9 cm (5' 1 ) 11/08/2017 3:55 PM EDT Body Mass Index 26.07 11/08/2017 3:55 PM EDT Plan of Treatment Health Maintenance Due Date Last Done Comments Depression Screening 2000 Tobacco Screening 2000 DTaP,Tdap and Td Vaccines (1 - Tdap) 2007 Pap Smear 2009 Influenza Vaccine 10/25/2024 Adult BMI Screening 03/26/2025 03/26/2024 Medical Devices Not on file Insurance [employer] Care Teams Supervisor Bindery Relationship Specialty Start Date End Date Victor Manuel Jimenez MD [address] [facility] [place] [address] PCP - General 11/08/17
--- OUTSIDE RECORDS SUMMARY | 2024-10-11 16:59 | XMS_ITS | Patient Health Record ---
Author Organization [facility] in [place] Address [address] [place] [address] Care Team Providers Care Thermospray Operator Name Role Phone Sandeep Jimenez Primary Care Provider Allergies Allergen (clinical drug ingredient) Drug/Non Drug Allergy documented on EMR Reaction Allergy Type Onset Date Status codeine Codeine swelling Drug Allergy Active Results Component Value Reference Range Notes IGP,Aptima HPV,Age Gdln Reviewed date:06/21/2024 07:23:39 PM Interpretation: Performing Lab: Notes/Report: BRUSH-SPATULA CERVIX ENDOCERVIX [facility] , Age Gdln ACOG Testing Note . TESTS RESULT FLAG UNITS REF RANGE LAB Clinician Provided Cytology Information Source.............Cervix;Endoce rvix No. of containers..01 ThinPrep Vial Age Algo ACOG Taina... 30-65 01 FLAG LEGEND: L-Low Normal,H-High Normal,LL-Alert Low,HH-Alert High <-Panic Low,>-Panic High,A-Abnormal,AA-Critical Abnormal Performed at: 01 =G [facility] [address] [facility] [place] [address] Anna Lopez MD, IGP, Aptima HPV, rfx [birth year] Note . TESTS RESULT FLAG UNITS REF RANGE LAB DIAGNOSIS: 02 NEGATIVE FOR INTRAEPITHELIAL LESION OR MALIGNANCY. Specimen adequacy: 02 Satisfactory for evaluation. Endocervical and/or squamous metaplastic cells (endocervical component) are present. Performed by: Tom Lux, Bi Solutions Architect ([facility]) . 02 Note: Note 02 The Pap smear is a screening test designed to aid in the detection of premalignant and malignant conditions of the uterine cervix. It is not a diagnostic procedure and should not be used as the sole means of detecting cervical cancer. Both false-positive and false-negative reports do occur. Test Methodology: Note 02 This liquid based ThinPrep(R) pap test was screened with the use of an image guided system. HPV Genotype Reflex Note 02 Criteria not met, HPV Genotype not performed. FLAG LEGEND: L-Low Normal,H-High Normal,LL-Alert Low,HH-Alert High <-Panic Low,>-Panic High,A-Abnormal,AA-Critical Abnormal Performed at: [address] [facility] [address] Anna Lopez MD, HPV Aptima Negative Negative This nucleic acid amplification test detects fourteen high- risk HPV types (16,18,31,33,35,39,45,51,52,56,5 8,59,66,68) without differentiation. Performed at: = - [facility] [id number] Research And Evaluation Manager: Anna Lopez MD, Phone: [phone] Performed at: [address] [id number] Research And Evaluation Manager: Anna Lopez MD, Phone: [phone] Performing Lab: see note - [facility] Reason For Referral No Information Medications Medication SIG (Take, Route, Frequency, Duration) Notes Start Date End Date Status Cetirizine HCl 10 MG 1 tablet Orally Onc e a day 08/20/2023 Active Benadryl Active Fluticasone-Salmeterol 113-14 MCG/ACT 2 puff Inhalation Twice a day for 30 days 03/29/2024 Active Emgality 120 MG/ML inject 120 mg Subcutaneous monthly for 30 days 1 syringe 10/03/2022 Active Nurtec 75 MG 1 tablet on the tong ue and allow to dissolve - as needed Orally q day for 30 day(s) 08/20/2023 Active Pristiq 50 MG 1 tablet Orally Once a day for 30 days 10/11/2024 Active Promethazine HCl 25 MG 1 tablet as neede d Orally q6h for 5 days 10/11/2024 Active Social History Tobacco Use: Social History Observation Description Date Details (start date - stop date) Never Smoker NA - NA Tobacco Use/Smoking Question Answer Notes Patient is a nonsmoker Alcohol Screen (Audit-C) Question Answer Notes Did you have a drink containing alcohol in the p ast year? No Points 0 Interpretation Negative AUDIT-C (Standard) Question Answer Notes Did you [...] Problem Status W/U Status Risk Notes Problem Migraine (32981958) Migraine (G43.909) Active confirmed Problem Well adult (275847058) Well adult (Z00.00) Active confirmed Problem Acute sinusitis (33306467) Acute sinus infection (J01.90) Active confirmed Problem Acute gastroenteritis (33931102) Acute gastroenteritis (K52.9) Active confirmed Problem Unintentional weight loss (614652566) Unintentional weight loss (R63.4) Active confirmed Vital Signs Blood pressure diastolic 72 mm Hg 10/11/2024 Height 61 in 10/11/2024 Blood pressure systolic 102 mm Hg 10/11/2024 Weight 114.4 lbs 10/11/2024 BMI 21.61 kg/m2 10/11/2024 Encounters Encounter Location Date Provider Diagnosis [facility] [address] [place] [address] 10/11/2024 [facility] [address] [place] [address] 10/05/2024 [facility] [address] [place] [address] 03/29/2024 [facility] [address] [place] [address] 03/29/2024 [facility] [address] [place] [address] 10/11/2024 [facility] adult Z00.00 ; Unintentional weight loss R63.4 [...] previous to the emgality wwas daily headaches Plan Of Treatment Pending Test Test Name Order Date CULTURE, STOOL 04/18/2023 HEMOGLOBIN A1C (GLYCO) 10/11/2024 IRON, TOTAL 10/11/2024 LIPID PANEL (CHOL/TRIG/HDL/LDL) 10/12/19 25 C DIFF TOX PCR STOOL 04/18/2023 THYROID ANTIBODIES 10/11/2024 THYROID PANEL (T4/TSH/FREE T3) 5 CMP (COMP MET EASON) w/eGFR CKD-EPI 2024 CBC WITH DIFF 10/11/2024 Insurance Providers Payer Name Payer Address Payer Phone Subscriber Number Group Number Insured Name Patient Relationship to Insured Coverage Start Date Coverage End Date [employer] [address] [place] [address] [id number] Erica Hope Self - patient is the insured Medications Administered Medication Instructions Date of Administration Dosage Notes Ketorolac Tromethamine 03/19/2023 60 mg Ketorolac Tromethamine 08/20/2023 60 mg Orphenadrine Citrate 08/20/2023 60 mg Promethazine 25mg 08/20/2023 25 mg Promethazine, 25 mg 03/19/2023 1 mL Medical (General) History Surgical History Surgery Date(Month/Year) D&C Tubal Tonsillectomy
--- OUTSIDE RECORDS SUMMARY | 2024-10-11 16:59 | XMS_ITS | Clinical Summary ---
Author Organization [facility] Address [address] [place] [address] Care Team Providers Care Pharmaceutical Process Engineer Name Role Phone Unavailable Primary Care Provider Unavailabl e Allergies Active Allergy Reactions Criticality Noted Date Comments Codeine Swelling 11/08/2017 Other Reaction(s): Unknown Medications metroNIDAZOLE (Flagyl) 500 MG tabletIndicatio ns:BV (bacterial vaginosis) Take 1 tablet (500 mg) by mouth in the morning and 1 tablet (500 mg) before bedtime. Do all this for 7 days. Do not drink alcohol while taking this medication. 14 tablet 09/30/2024 10/08/19 25 fluconazole (Diflucan) 150 MG tabletIndicatio ns:Yeast infection Take 1 tablet (150 mg) by mouth 1 (one) time for 1 dose This is a 1 time dose, take single tablet by mouth. 1 tablet 1 09/30/2024 10/01/19 25 Active Problems Problem Noted Date Diagnosed Date BV (bacterial vaginosis) 02/10/2024 Encounters Date Type Department Care Team Description 09/30/2024 Telephone [facility] [address] [place] [address] [place] [address] Poly Ortega MA from Last 3 Months Family History Medical History Relation Name Comments Arthritis Father Arthritis Mother Microcephaly Son Relation Name Status Comments Father Mother Son Alive Social History Tobacco Use Types Packs/Day Years Used Date Smoking Tobacco: Never Smokeless Tobacco: Never Tobacco Cessation:Counseling Given: Not Answered Alcohol Use Standard Drinks/Week Comments Never 0 (1 standard drink = 0.6 oz pure alcohol) caffeine: 1-2 cups per day coffee, tea Comments Unknown Sex and Gender Information Value Date Recorded Sex Assigned at Female 12/07/2022 10:02 AM EDT Legal Sex Female 7:20 PM EDT Gender Identity Female 12/07/2022 10:02 AM EDT Sexual Orientation Not on file Last Filed Vital Signs Vital Sign Reading Time Taken Comments Blood Pressure 90/60 06/16/2024 3:42 PM EDT Pulse - - Temperature - - Respiratory Rate - - Oxygen Saturation - - Inhaled Oxygen Concentration - - Weight 58.5 kg (129 lb) 06/16/2024 3:42 PM EDT Height 154.9 cm (5' 1 ) 06/11/2023 3:47 PM EDT Body Mass Index 24.37 06/11/2023 3:47 PM EDT Plan of Treatment Not on file Insurance [facility]
--- OUTSIDE RECORDS SUMMARY | 2024-10-11 16:59 | XMS_ITS | Encounter Summary ---
Author Organization [facility] Address [address] [place] [place] [address] Care Team Providers Care Instructor Modeling Name Role Phone Unavailable Primary Care Provider Unavailabl e Encounter Details Date Type Department Care Team (Late st Contact Info) Description 09/30/2024 Telephone [facility] [address] [facility] [facility] [id number] Poly Ortega MA Social History Tobacco Use Types Packs/Day Years [...] on file documented as of this encounter Miscellaneous Notes * Telephone Encounter - Poly Ortega MA - 09/30/2024 3:52 PM EDT Pt requesting bv and yeast meds. Meds sent to pharmacy documented in this encounter Plan of Treatment Not on file documented as of this encounter Visit Diagnoses Diagnosis Yeast infection BV (bacterial vaginosis) Unspecified vaginitis and vulvovaginitis documented in this encounter
--- OUTSIDE RECORDS SUMMARY | 2024-10-11 16:59 | XMS_ITS | Encounter Summary ---
Author Organization [facility] Address [address] [facility] [place] [address] Care Team Providers Care Grill Cook Name Role Phone Unavailable Primary Care Provider Unavailabl e Encounter Details Date Type Department Care Team (Late st Contact Info) Description 06/30/2024 Orders Only [facility] [address] [place] [id number] Gayathri Narayan LPN [address] [place] [address] Social History Tobacco Use Types Packs/Day Years [...] on file documented as of this encounter Procedures Procedure Name Priority Date/Time Associated Diagnosis Comments PAP SMEAR Routine 06/16/2024 12:00 AM EDT documented in this encounter Results * Pap Smear (06/16/2024 12:00 AM EDT) Swab Cervical swab / Unknown us Eunice [facility] CYTOLOGY ORDERABLES Final Result EXTERNAL LAB documented in this encounter Visit Diagnoses Not on filedocumented in this encounter
[2024-10-11 17:12] LABS: Hematocrit 42.0 % (36.0-48.0); Hemoglobin 14.1 g/dL (12.0-16.0); Immature Granulocytes Abs Auto 0.02 10^3/uL (0.00-0.03); Immature Granulocytes Pct Auto 0.2 % (0.0-0.5); Lymphocytes Absolute Auto 2.6 10^3/uL (1.2-3.8); Mean Corpuscular HGB Conc 33.6 g/dL (29.9-35.2); Mean Corpuscular Hemoglobin 31.4 pg (26.7-34.0); Mean Corpuscular Volume 93.5 fL (81.0-99.0); Platelet Count 197 10^3/uL (150-450); Red Blood Count 4.49 10^6/uL (4.20-5.40); White Blood Count 8.2 10^3/uL (4.0-11.0)
[2024-10-11 17:45] LABS: Alanine Aminotransferase 25 U/L (14-59); Albumin Globulin Ratio 1.1; Albumin Level 3.9 g/dL (3.4-5.0); Alkaline Phosphatase 81 U/L (46-116); Anion Gap 6.8; Aspartate Amino Transferase 15 U/L (15-37); Blood Urea Nitrogen 9.0 mg/dL (7.0-18.0); Calcium 8.6 mg/dL (8.5-10.1); Carbon Dioxide 29.7 mmol/L (21.0-32.0); Chloride 105 mmol/L (98-107); Cholesterol 162 mg/dL (<=200); Estimated GFR (African America >60 (>=60 mL/min/1.73m^2); Estimated GFR (Non-African Ame >60 (>=60 mL/min/1.73m^2); Free T3 2.36 pg/mL (2.18-3.98); Globulin 3.7 g/dL; Glucose 91 mg/dL (74-106); HDL Cholesterol 74 mg/dL (40-60); Potassium 3.5 mmol/L (3.5-5.1); Sodium 138 mmol/L (136-145); Thyroid Stimulating Hormone 1.801 uIU/mL (0.358-3.740); Total Protein 7.6 g/dL (6.4-8.2); Triglycerides 65 mg/dL (<=150); VLDL CHOLESTEROL 13.0 mg/dL
--- OUTSIDE RECORDS SUMMARY | 2024-10-11 17:46 | XMS_ITS | CCD ---
Author Organization [facility] Care Team Providers Care Director Of Strategic Partnerships Name Role Phone YVES ., DR CHEN [...] HOY ., DR CHEN Primary Care Unavailable EUNICE ., DR MORE Admitting Unavailable EUNICE ., DR MORE Attending Unavailable EUNICE ., DR MORE Consulting Unavailable HOY ., DR CHEN Admitting Unavailable HOY ., DR CHEN Attending Unavailable HOY ., DR CHEN Primary Care Unavailable ALISA Preston Attending Provider Karissa Preston Attending Unavailable Karissa Preston Admitting Unavailable Unavailable Primary Care Provider UnavailGUSTAVO Solomon Primary Care Unavailable LAMONTTERI MAYA Attending Unavailable DERIK DAWSON Attending Unavailable Allergies Allergy Classification Reported Allergen(s) Allergy Type Date of Onset Reaction(s) Facility (3 sources) Codeine; Translations: [CODEINE] Drug Allergy 02-26-[address] [facility] Repository (2 sources) Acetaminophen Drug Allergy 03-28-2023 face numb [facility] Repository (1 source) Codeine Drug Allergy 03-28-2023 [facility] Repository (1 source) HYDROcodone Drug Allergy 03-28-2023 [facility] Repository (6 sources) Codeine Drug Allergy 11-08-2017 Swelling [facility] Medications Current Medications Medication Drug Class(es) Dates Sig (Normalized) Sig (Original) ethinyl estradiol 0.035 mg / norgestimate 0.25 mg oral tablet (2 sources) Progestin, Estrogen Start: 12-16-2022 End: 04-03-2023 take 1 tablet by mouth in the morning Mayes-Linyah 0.25-35 MG-MCG tablet Indications: Uses control Take [...] 04/03/2023 Active metroNIDAZOLE 500 mg oral tablet (5 sources) Nitroimidazole Antimicrobial Start: 06-16-2024 End: 06-23-2024 take 1 tablet by mouth in the morning metroNIDAZOLE (Flagyl) 500 MG tablet Indications: Vaginal discharge Take 1 tablet (500 mg) by mouth in the morning and 1 tablet (500 mg) before bedtime. Do all this for 7 days. 14 tablet 06/16/2024 06/23/2024 Active Start: 04-03-2023 End: 04-10-2023 take 1 tablet by mouth in the morning metroNIDAZOLE (Flagyl) 500 MG tablet Indications: Vaginal discharge Take 1 tablet (500 mg) by mouth in the morning and 1 tablet (500 mg) before bedtime. Do all this for 7 days. Do not drink alcohol while taking this medication. 14 tablet 0 04/03/2023 04/10/2023 Active oseltamivir 75 mg oral capsule (1 source) Neuraminidase Inhibitor Start: 03-23-2024 take 1 capsule by mouth twice daily Oseltamivir 75 mg capsule Active 75 MG PO Twice daily 10 March 23, 2024 12:00am Problems Active Problems Problem Classification Problem Date Documented Date Episodic/Chronic Asthma (1 source) Asthma; Translations: [Unspecified asthma, uncomplicated] 03-23-2024 Chronic Genitourinary symptoms and ill-defined conditions (1 source) Dysuria; Translations: [Dysuria] 04-03-2023 Episodic Headache; including migraine (4 sources) Migraine, unspecified, not intractable, without status migrainosus; Translations: [MIGRAINE UNS NOT INTRACT W/O SM] Onset: 11-05-2021 Chronic Immunizations and screening for infectious disease (4 sources) Encounter for screening for human papillomavirus (HPV); Translations: [Exposure to sexually transmissible disorder] Onset: 12-04-2021 04-03-2023 Episodic Influenza (2 sources) Influenza due to Influenza A virus; Translations: [Influenza due to other identified influenza virus with other respiratory manifestations] 03-23-2024 Episodic Menstrual disorders (2 sources) Menorrhagia; Translations: [Excessive and frequent menstruation with regular cycle] 06-16-2024 Chronic Mycoses (1 source) Mycosis; Translations: [Candidiasis, unspecified] 04-03-2023 Episodic Other female genital disorders (1 source) Other specified noninflammatory disorders of vagina; Translations: [Other specified noninflammatory disorders of vagina] Onset: 03-28-2023 Episodic Other female genital disorders (3 sources) Vaginal discharge; Translations: [Other specified noninflammatory disorders of vagina] 04-03-2023 Episodic Other lower respiratory disease (2 sources) Cough Onset: 03-26-2024 Episodic Other upper respiratory disease (1 source) Seasonal allergy; Translations: [Other seasonal allergic rhinitis] 03-23-2024 Chronic Residual codes; unclassified (4 sources) Localized edema; Translations: [LOCALIZED EDEMA] Onset: 05-07-2022 Episodic Urinary tract infections (3 sources) Urinary tract infectious disease; Translations: [Urinary tract infection, site not specified] 04-03-2023 Episodic Viral infection (1 source) Viral infection, unspecified; Translations: [Viral infection, unspecified] Onset: 03-26-2024 Episodic Past or Other Problems Problem Classification Problem Date Documented Da te Episodic/Chronic Inflammatory diseases of female pelvic organs (5 sources) Bacterial vaginosis; Translations: [Acute vaginitis] Onset: 02-10-2024 02-10-2024 Episodic Other screening for suspected conditions (not mental disorders or infectious disease) (4 sources) Encounter for screening for malignant neoplasm of cervix; Translations: [ENC SCREENING MALIG NEOPLASM CERV] Onset: 12-03-2021 Episodic Results Test Name Value Interpretation Reference Range Facility IGP,APTIMA HPV,AGE GDLNon 04 -28-2025 AGE GDLN ACOG TESTING Note . [facility] Comment on above: TESTS RESULT FLAG UN ITS REF RANGE LAB Clinician Provided Cytology Information Source.............Cervix;Endocervix No. of containers..01 ThinPrep Vial Age Algo ACOG Taina... FLAG LEGEND: L-Low Normal,H-High Normal,LL-Alert Low,HH-Alert High <-Panic Low,>-Panic High,A-Abnormal,AA-Critical Abnormal Performed at: 01 =G [facility] [address] [id number] Anna Lopez MD, HPV APTIMA Negative Negative [facility] e Comment on above: This nucleic acid am plification test detects fourteen high- risk HPV types (16,18,31,33,35,39,45,51,52,56,58,59,66,68) without differentiation. Performed at: =G - [facility] [id number] Gunner'S Mate: Anna Lopez MD, Phone: [phone] Performed at: - [facility] [id number] Gunner'S Mate: Anna Lopez MD, Phone: [phone] IGP, APTIMA HPV, RFX 16[birth year]18[birth year] Note . [facility] Comment on above: TESTS RESULT FLAG U NITS REF RANGE LAB DIAGNOSIS: 02 NEGATIVE FOR INTRAEPITHELIAL LESION OR MALIGNANCY. Specimen adequacy: 02 Satisfactory for evaluation. Endocervical and/or squamous metaplastic cells (endocervical component) are present. Performed by: 02 Gagan Lux Chip Machine Operator ([facility]) . 02 Note: Note 02 The Pap [...] <-Panic Low,>-Panic High,A-Abnormal,AA-Critical Abnormal Performed at: 02 WB [facility] [address] [place] [address] Anna Lopez MD, BRUSH-SPATULA CERVIX ENDOCERVIX CLINISYNC [facility] Healthcar e No Panel Informationon 06-17 STAPHYLOCOCCUS EPIDERMIDIS, HAEMOLYTICUS, LUGDUNENSIS, SAPROPHYTICUS (URINA 0 [facility] STAPHYLOCOCCUS EPIDERMIDIS, HAEMOLYTICUS, LUGDUNENSIS, SAPROPHYTICUS (URINA Not detected [facility] URINARY TRACT INFECTION (HTR X)on 06-17-2024 ACINETOBACTER BAUMANII 0 [facility] Healthcare ACINETOBACTER BAUMANII Not detected [facility] MEGAN ALBICANS, PARAPSILOSIS, TROPICALIS 0 [facility] MEGAN ALBICANS, PARAPSILOSIS, TROPICALIS Not detected [facility] MEGAN GLABRATA 0 [facility] MEGAN GLABRATA Not detected [facility] H ealthcare MEGAN KRUSEI 0 [facility] Healt hcare MEGAN KRUSEI Not detected [facility] CITROBACTER FREUNDII 0 [facility] CITROBACTER FREUNDII Not detected [facility] ENTEROBACTER AEROGENES, CLOACAE 0 [facility] Healthmd re ENTEROBACTER AEROGENES, CLOACAE Not detected [facility] Healthmd re ENTEROCOCCUS FAECALIS, FAECIUM 0 [facility] e ENTEROCOCCUS FAECALIS, FAECIUM Not detected [facility] e ESCHERICHIA COLI 0 [facility] ESCHERICHIA COLI Not detected [facility] H ealthcare KLEBSIELLA PNEUMONIAE, OXYTOCA 0 [facility] KLEBSIELLA PNEUMONIAE, OXYTOCA Not detected [facility] are MORGANELLA MORGANII 0 [facility] MORGANELLA MORGANII Not detected [facility] PROTEUS MIRABILIS, VULGARIS 0 [facility] PROTEUS MIRABILIS, VULGARIS Not detected [facility] PSEUDOMONAS AERUGINOSA 0 [facility] PSEUDOMONAS AERUGINOSA Not detected [facility] SERRATIA MARCESCENS 0 [facility] SERRATIA MARCESCENS Not detected [facility] STAPHYLOCOCCUS AUREUS 0 [facility] STAPHYLOCOCCUS AUREUS Not detected [facility] STREPTOCOCCUS AGALACTIAE (GROUP B STREP) 0 [facility] STREPTOCOCCUS AGALACTIAE (GROUP B STREP) Not detected [facility] STREPTOCOCCUS PYOGENES (GROUP A STREP) 0 [facility] STREPTOCOCCUS PYOGENES (GROUP A STREP) Not detected [facility] e Urinalysis macro (dipstick) panel (U)on 06-16-2024 Bilirubin, UA Negative Negative - 4(70) +++ mg/dL [facility] Blood, UA Positive Negative - 50 Fred/mcL [facility] Comment on above: Trace-lysed Clarity, UA Clear [facility] re Color, UA Yellow [facility] e Glucose, UA Negative Negative - 2000(110) ++++ mg/dL [facility] Interpretation and review of laboratory results Abnormal [facility] re Ketones, UA Negative Negative - 160(16) ++++ mg/dL [facility] Leukocytes, UA Trace Negative - 500+++ Jenna/mcL [facility] Nitrite, UA Negative Negative - Positive [facility] pH, UA 6 5 - 9 [facility] e Protein, UA Negative Negative - 2000(20) ++++ mg/dL [facility] Spec Grav, UA 1.03 1 - 1.03 [facility] Urobilinogen, UA 1.0 0.2 - 12 mg/dL [facility] e HCG ( test) Ql (U)o n 03-26-2024 Beta HCG ( test) Ql (U) Negative Normal [facility] Comment on above: Performed By: #### 2 106-3 #### [facility] ([id number]) [address] [place] [address] URN MACROSCOPIC NURon 2024 BILIRUBIN ALEXIA Negative [facility] Comment on above: Performed By: #### N UM #### [facility] ([id number]) [address] [place] [address] BLOOD/HGB ALEXIA Trace Abnormal [facility] Comment on above: Performed By: #### N UM #### [facility] ([id number]) [address] [place] [address]3347 GLUCOSE ALEXIA Negative Normal [facility] Comment on above: Performed By: #### N UM #### [facility] ([id number]) [address] [place] [address] KETONES ALEXIA Negative Normal [facility] Comment on above: Performed By: #### N UM #### [facility] ([id number]) [address] [place] [address]43 LEUKOCYTE ESTERASE ALEXIA Negative Normal [facility] Comment on above: Performed By: #### N UM #### [facility] ([id number]) [address] [place] [address] NITRITE ALEXIA Negative Normal [facility] Comment on above: Performed By: #### N UM #### [facility] ([id number]) [address] [place] [address] PH ALEXIA 8.0 Normal 5.0-8.5 [facility] Comment on above: Performed By: #### N UM #### [facility] ([id number]) [address] [place] [address] PROTEIN ALEXIA 30 mg/dL Abnormal NEG [facility] Comment on above: Performed By: #### N UM #### [facility] ([id number]) [address] [place] [address] SPECIFIC GRAVITY ALEXIA 1.020 Normal 1.003-1.035 [facility] Comment on above: Performed By: #### N UM #### [facility] ([id number]) [address] [place] [address] UROBILINOGEN ALEXIA 1.0 eu/dL Normal <1.1 [facility] Comment on above: Performed By: #### N UM #### [facility] ([id number]) [address] [place] [address]997 XR CHEST 2 VWSon 03-26-2024 XR CHEST 2 VWS XR CHEST 2 VWS XR CHEST 2 VWS 03/26/2024 4:18 PM INDICATION: cough, flu COMPARISON: None TECHNIQUE: PA and lateral views of the chest were obtained FINDINGS: The lungs are clear. There is no pneumothorax. There is no pleural effusion. The cardiomediastinal silhouette is unremarkable. No acute osseous abnormalities. IMPRESSION: No acute cardiopulmonary process. Finalized by Amaury Cox on 03/26/2024 4:22 PM Normal [facility] Urinalysis macro (dipstick) panel (U)on 04-03-2023 Bilirubin, UA Negative Negative - 4(70) +++ mg/dL [facility] Healthcare Blood, UA Negative Negative - 50 Fred/mcL [facility] Clarity, UA Clear [facility] re Color, UA Yellow [facility] Glucose, UA Negative Negative - 2000(110) ++++ mg/dL [facility] Interpretation and review of laboratory results Normal [facility] re Ketones, UA Negative Negative - 160(16) ++++ mg/dL [facility] Leukocytes, UA Negative Negative - 500+++ Jenna/mcL [facility] Nitrite, UA Negative Negative - Positive [facility] pH, UA 6.5 5 - 9 [facility] e Protein, UA Negative Negative - 1999(20) ++++ mg/dL [facility] Spec Grav, UA 1.020 1 - 1.03 [facility] Urobilinogen, UA 0.2 0.2 - 12 mg/dL [facility] Bacteria Vaginosis, NAAon Atopobium Vaginae Low - 0 Normal . [facility] Comment on above: Order Comment: Reaso n for Exam Vaginal discharge Performed By: #### C ANDIDA,NA, VAGINOSIS #### [facility] , BVAB2 Low - 0 Normal . [facility] Comment on above: Order Comment: Reaso n for Exam Vaginal discharge Performed By: #### C ANDIDA,NA, VAGINOSIS #### [facility] , Megasphaera Low - 0 Normal . [facility] Comment on above: Order [...] developed and its performance characteristics determined by [facility]. It has not been cleared or approved by the Food and Drug Administration. Performed By: #### C ANDIDA,NA, VAGINOSIS #### [facility] , Megan Albicans+Glabrata, N AAon 03-28-2023 Megan Albicans, KEZIA Negative Normal Negative [facility] Comment on above: Order Comment: Reaso n for Exam Vaginal discharge Result Comment: This test was developed and its performance characteristics determined by [facility]. It has not been cleared or approved by the Food and Drug Administration. Performed By: #### C CL CARPENTER, VAGINOSIS #### [facility] , Megan Glabrata, KEZIA Negative Normal Negative [facility] Comment on above: Order Comment: Reaso n for Exam Vaginal discharge Result Comment: This test was developed and its performance characteristics determined by [facility]. It has not been cleared or approved by the Food and Drug Administration. Performed at: = - [facility] [id number] Gunner'S Mate: Anna Lopez MD, Phone: [phone] PERFORMED BY: [facility] [address] [place] [address] PATHOLOGIST [employer] ORDER FILLER FLAVIA HERNANDEZ M.D. Performed By: #### C CL CARPENTER, VAGINOSIS #### [facility] , US TITO DOP [...] by: RISHABH CR Date: 2022-05-07 15:[address] [facility] PAP ACOG PANEL 2: 30 to 65on 12-09-[address] [facility] Comment on above: Result Comment: Perf ormed at: WB Performed By: #### [id number] #### [facility] [address] [address] [address] Poli Almanza Age Gdln ACOG Testing [address] [facility] Comment on above: Performed By: #### [id number] #### [facility] [address] [place], [place] [address] Dr. Poli Almanza DIAGNOSIS: Comment Normal [facility] Comment on above: Result Comment: NEGA TIVE FOR INTRAEPITHELIAL LESION OR MALIGNANCY. Performed at: WB Performed By: #### 4 [id number] #### [facility] [address] [place] [address] Dr. Poli Almanza HPV Aptima Negative Normal Negative [facility] Comment on above: Result Comment: This nucleic acid amplification test detects fourteen high-risk HPV types (16,18,31,33,35,39,45,51,52,56,58,59,66,68) without differentiation. Performed at: =G Performed By: #### 4 [id number] #### [facility] [address] [place] [address] Dr. Poli Almanza Methodology: Comment Normal [facility] Comment on above: Result Comment: This liquid based ThinPrep(R) pap test was screened with the use of an image guided system. Performed at: WB Performed By: #### [id number] #### [facility] [address] [place] [address] Dr. Poli Almanza Note: Comment Normal [facility] Comment on above: Result Comment: The Pap smear is a screening test designed to aid in the detection of premalignant and malignant conditions of the uterine cervix. It is not a diagnostic procedure and should not be used as the sole means of detecting cervical cancer. Both false-positive and false-negative reports do occur. . Performed at: WB Performed By: #### [id number] #### [facility] [address] [place] [address] Dr. oPli Almanza Performed by: Comment Normal [facility] Comment on above: Result Comment: Callum Myles, Manufacturing Lead (ASCP) Performed at: WB Performed By: #### [id number] #### [facility] [address] [place] [address] Dr. Poli Almanza Specimen adequacy: Comment Normal [facility] Comment on above: Result Comment: Sati sfactory for evaluation. Endocervical and/or squamous metaplastic cells (endocervical component) are present. Performed at: WB Performed By: #### [id number] #### [facility] [address] [place] [address] Dr. Poli Almanza MRI BRAIN WO CONon MRI BRAIN WO CON EXAMINATION: MRI BRA IN WO CON, 11/05/2021 3:14 PM EDT HISTORY: [...] by: AC CASTILLO Date: 2021-11-05 18:[address] [facility] Vital Signs Date Time Vital Sign Value Performing Clinician Facility 06-16-2024 15:42-0400 Body mass index (BMI) [Ratio] 24.37 kg/m2 [employer] Work Phone: [facility] 06-16-2024 15:42-0400 Body weight 58.51 kg [employer] Work Phone: [facility] 06-16-2024 15:42-0400 Diastolic blood pressure 60 mm[Hg] [employer] Work Phone: [facility] 06-16-2024 15:42-0400 Systolic blood pressure 90 mm[Hg] Derik [employer] Work Phone: [facility] 03-23-2024 10:00-0500 Diastolic blood pressure 66 mm[Hg] [facility] 03-23-2024 10:00-0500 Systolic blood pressure 100 mm[Hg] [facility] 03-23-2024 09:37-0500 Body height 154.94 cm [facility] 03-23-2024 09:37-0500 Body mass index (BMI) [Ratio] 26.6 kg/m2 [facility] 03-23-2024 09:37-0500 Body temperature 98.6 [degF] [facility] 03-23-2024 09:37-0500 Body weight 64.01 kg [facility] 03-23-2024 09:37-0500 Heart rate 84 /min [facility] 03-23-2024 09:37-0500 Respiratory rate 16 /min [facility] 03-23-2024 09:37-0500 SaO2% (BldA) [Mass fraction] 99 % [facility] 04-03-2023 11:05-0500 Body height 154.9 cm Arianna SANCHEZ Work Phone: [facility] 04-03-2023 11:05-0500 Body mass index (BMI) [Ratio] 26.26 kg/m2 Arianna SANCHEZ Work Phone: [facility] 04-03-2023 11:05-0500 Body weight 63.05 kg Arianna SANCHEZ Work Phone: [facility] 04-03-2023 11:05-0500 Diastolic blood pressure 78 mm[Hg] Arianna SANCHEZ Work Phone: [facility] 04-03-2023 11:05-0500 Systolic blood pressure 116 mm[Hg] Arianna SANCHEZ Work Phone: [facility] Healthcare Encounters Encounter Date Encounter Type Care Provider Facility Start: 06-16-2024 End: 06-16-2024 ambulatory DERIK EUNICE Not Available Start: 06-16-2024 End: 06-16-2024 Patient encounter procedure Derik Eunice DO Work Phone: [facility] Start: 06-16-2024 End: 06-16-2024 Periodic preventive med est patient 18-39 yrs Derik Eunice DO Work Phone: [facility] Comment on above: Well woman exam with routine gynecological exam; Urinary tract infection with hematuria, site unspecified; Menorrhagia with regular cycle; Vaginal discharge; Possible exposure to STD Start: 06-16-2024 End: 06-16-2024 Bamboo flowsheet Derik Eunice DO Work Phone: [facility] Start: 06-16-2024 End: 06-21-2024 Bamboo flowsheet Derik Eunice DO Work Phone: [facility] Start: 06-16-2024 End: 06-21-2024 [facility] Result Encounter Derik Adano DO Work Phone: [facility] Unsolicited Start: 06-16-2024 End: 06-17-2024 External Result Encounter Derik Dawson DO Work Phone: [facility] Unsolicited Start: 03-26-2024 End: 03-26-2024 Emergency department patient visit GUSTAVO JIMENEZ [facility] Start: 03-23-2024 End: 03-23-2024 ambulatory [facility] Work Phone: Start: 03-23-2024 End: 03-23-2024 Patient encounter procedure [facility] Work Phone: Start: 04-03-2023 End: 04-03-2023 Office outpatient visit 15 minutes Arianna SANCHEZ Work Phone: [facility] Comment on above: Vaginal discharge; STD exposure; Urinary tract infection without hematuria, site unspecified; Dysuria; Yeast infection Start: 03-28-2023 End: 03-28-2023 ambulatory Karissa Preston Facility:[facility] Start: 03-28-2023 End: 03-28-2023 ambulatory ALISA Preston Work Phone: [facility] Work Phone: Start: 03-28-2023 End: 03-28-2023 Departed Referred ALISA Preston Work Phone: [facility] [place] Work Phone: Start: 05-07-2022 End: 05-08-[address] GUSTAVO JIMENEZ . Facility: Start: 12-03-2021 End: 12-03-[address] GUSTAVO JIMENEZ . Facility:[facility] Start: 11-05-2021 End: 11-06-[address] GUSTAVO JIMENEZ . Facility:[facility] Procedures Date Procedure Procedure Detail Performing Clinician Start: 06-16-2024 URINARY TRACT INFECT ION (HTRX) Derik Adano DO Work Phone: Start: 06-16-2024 Urnls dip stick/tabl et rgnt non-auto w/o micrscp Derik Eunice DO Work Phone: Start: 06-16-2024 IGP,APTIMA HPV,AGE GDLN Derik Eunice DO Work Phone: Start: 04-03-2023 Urnls dip stick/tabl et rgnt non-auto w/o micrscp Arianna Pierce PA Work Phone: Plan of Treatment Date Care Activity Detail Author Start: 06-16-2024 End: 06-16-2025 aPTT in Blood by Coagulation assay APTT Lab Routine Menorrhagia with regular cycle Expected: 06/16/2024 (Approximate), Expires: 06/16/2025 [facility] Comment on above: Expected: 06/16/2024 (Approximate), Expires: 06/16/2025 Start: 06-16-2024 End: 06-16-2025 US Pelvis US Pelvis w/ TV Imaging Routine Menorrhagia with regular cycle Expected: 06/16/2024, Expires: 06/16/2025 [facility] Comment on above: Expected: 06/16/2024 , Expires: 06/16/2025 Start: 06-11-2023 End: 06-11-2023 Patient encounter procedure 06/11/2023 3:00 PM EDT Office Visit [facility] [address] [place] [address] Derik Dawson, DO [address] [place] [address] [facility] Atopobium vaginae DN A [Presence] in Vaginal fluid by KEZIA with probe detection [facility] Bacteria identified in Urine by Culture Urine culture Microbiology Routine Dysuria Ordered: 04/03/2023 [facility] Comment on above: Ordered: 04/03/2023 Bacteria identified in Urine by Culture Urine culture Microbiology Routine Urinary tract infection with hematuria, site unspecified Ordered: 06/16/2024 [facility] Comment on above: Ordered: 06/16/2024 Bacterial vaginosis associated bacterium 2 DNA [Presence] in Vaginal fluid by KEZIA with probe detection [facility] CBC W Auto Different ial panel - Blood CBC and differential Lab Routine Menorrhagia with regular cycle Ordered: 06/16/2024 [facility] Comment on above: Ordered: 06/16/2024 CHLAMYDIA TRACHOMATI S (GENITO/STI) CHLAMYDIA TRACHOMATIS (GENITO/STI) Lab Routine STD exposure Ordered: 04/03/2023 [facility] Comment on above: Ordered: 04/03/2023 CHLAMYDIA TRACHOMATI S (GENITO/STI) CHLAMYDIA TRACHOMATIS (GENITO/STI) Lab Routine Vaginal discharge Possible exposure to STD Ordered: 06/16/2024 [facility] Comment on above: Ordered: 06/16/2024 Cytology Cervical or vaginal smear or scraping study Pap Smear Pathology and Cytology Routine Well woman exam with routine gynecological exam Ordered: 06/16/2024 [facility] Work Phone: Comment on above: Ordered: 06/16/2024 hCG, quantitative, hCG, quantitative, Lab Routine Menorrhagia with regular cycle Ordered: 06/16/2024 [facility] Comment on above: Ordered: 06/16/2024 Hemoglobin A1c/Hemoglobin.total in Blood Hemoglobin A1c Lab Routine Menorrhagia with regular cycle Ordered: 06/16/2024 [facility] Comment on above: Ordered: 06/16/2024 Human papilloma viru s DNA [Presence] in Unspecified specimen by Probe with amplification HPV DNA probe, amplified Microbiology Routine Well woman exam with routine gynecological exam Ordered: 06/16/2024 [facility] Comment on above: Ordered: 06/16/2024 Megasphaera sp type 1 DNA [Presence] in Vaginal fluid by KEZIA with probe detection [facility] Neisseria gonorrhoea e DNA [Presence] in Unspecified specimen by KEZIA with probe detection Neisseria gonorrhea DNA probe, direct Lab Routine STD exposure Ordered: 04/03/2023 [facility] Comment on above: Ordered: 04/03/2023 Neisseria gonorrhoea e DNA [Presence] in Unspecified specimen by KEZIA with probe detection Neisseria gonorrhea DNA probe, direct Lab Routine Vaginal discharge Possible exposure to STD Ordered: 06/16/2024 [facility] Comment on above: Ordered: 06/16/2024 Prothrombin time (PT ) in Blood by Coagulation assay Protime-INR Lab Routine Menorrhagia with regular cycle Ordered: 06/16/2024 [facility] Comment on above: Ordered: 06/16/2024 SURESWAB(R) ADVANCED VAGINITIS PLUS, TMA SURESWAB(R) ADVANCED VAGINITIS PLUS, TMA Pathology and Cytology Routine Vaginal discharge Ordered: 04/03/2023 [facility] Work Phone: Comment on above: Ordered: 04/03/2023 SURESWAB(R) ADVANCED VAGINITIS PLUS, TMA SURESWAB(R) ADVANCED VAGINITIS PLUS, TMA Pathology and Cytology Routine Vaginal discharge Possible exposure to STD Ordered: 06/16/2024 [facility] Comment on above: Ordered: 06/16/2024 Thyrotropin [Units/volume] in Serum or Plasma TSH Lab Routine Menorrhagia with regular cycle Ordered: 06/16/2024 [facility] Comment on above: Ordered: 06/16/2024 Thyroxine (T4) free [Mass/volume] in Serum or Plasma T4, free Lab Routine Menorrhagia with regular cycle Ordered: 06/16/2024 [facility] Comment on above: Ordered: 06/16/2024 [facility] Payers Date Payer Category Payer [facility] BCBS [id number] 2017 Unknown BCBS BCBS xxxxxx [id number] 2017-Present [phone] [address] [place] [address] [id number] 2017 Unknown [id number] 1988 Unknown [id number] 1988 Unknown [id number] 1988 Unknown [id number] 1988 Unknown [id number] 1988 Unknown [id number] 1988 Unknown [id number] 1959 Self-pay 1959 Unknown [id number] Unknown [place] BC/BS [id number] Unknown [id number] Social History Date Type Detail Facility Tobacco smoking status NVIS Unknown if ever smoked [facility] Work Phone: Start: 1990 Sex Assigned At Female F [facility] Start: 11-27-2022 End: 03-23-2024 Tobacco smoking status NHIS Never smoked tobacco [facility] Start: 11-27-2022 Tobacco use and exposure Smokeless tobacco non-user [facility] Start: 11-27-2022 End: 06-11-2023 Alcohol intake Lifetime non-drinker (finding) [facility] Start: 11-27-2022 History of Social function [facility] Start: 11-27-2022 Tobacco use panel [facility] Start: 11-27-2022 Alcohol Comment caffeine: 1-2 cups per day coffee, tea [facility] Start: 12-07-2022 Gender identity Identifies as female gender (finding) [facility] Start: 03-23-2024 Sex Female (finding) [facility] History of Present illness Narrative 06-16-2024 Marcella Rios LPN - 06/16/2024 3:00 PM EDT Note Date & Type Note Facility 06-16-2024 History of Presen t illness Narrative Reason for Appointment: Patient ID: Erica Hope is a 34 y.o. female who presents for Well Women Visit Patient presents today for Annual Exam. MEDICATIONS No current outpatient medications ALLERGIES Allergies Allergen Reactions Codeine Swelling Other Reaction(s): Unknown PROBLEMS Active Ambulatory Problems Diagnosis Date Noted BV (bacterial vaginosis) 02/10/2024 Resolved Ambulatory Problems Diagnosis Date Noted No Resolved Ambulatory Problems Past Medical History: Diagnosis Date Asthma (CMS/HCC) Cerebrovascular accident (CMS/[facility]) H/O recurrent urinary tract infection (normal spontaneous vaginal delivery) 2014 S/P T&A (status post tonsillectomy and adenoidectomy) 2003 Seasonal allergies Spider veins Varicella zoster HISTORY PAST MEDICAL HISTORY SOCIAL HISTORY Past Medical History: Diagnosis Date Asthma (CMS/HCC) Cerebrovascular accident (CMS/[facility]) L - allergic reaction to codeine(2002) H/O recurrent urinary tract infection (normal spontaneous vaginal delivery) 2015 4th degree S/P T&A (status post tonsillectomy and adenoidectomy) 2003 Seasonal allergies Spider veins Varicella zoster Social History Tobacco Use Smoking status: Never Smokeless tobacco: Never Substance Use Topics Alcohol use: Never Comment: caffeine: 1-2 cups per day coffee, tea Drug use: Never FAMILY HISTORY Family History Problem Relation Name Age of Onset Arthritis Mother Arthritis Father Microcephaly Son SURGICAL HISTORY Past Surgical History: Procedure Laterality Date [place] MEDICATION MANAGEMENT asthma [place] MEDICATION MANAG[place] Zyrtec- seasonal allergies VAGINAL DELIVERY 2014 - 4th degree REVIEW OF SYSTEMS Review of Systems: Review of Systems Genitourinary: Positive for menstrual problem and vaginal discharge. OBJECTIVE Objective: Physical Exam Constitutional: Appearance: Normal appearance. She is well-developed. Genitourinary: Vulva normal. Breasts: Breasts are soft. Right: Normal. Left: Normal. Cardiovascular: Rate and Rhythm: Normal rate and regular rhythm. Pulmonary: Effort: Pulmonary effort is normal. Breath sounds: Normal breath sounds. Abdominal: General: Bowel sounds are normal. There is no distension. Palpations: Abdomen is soft. Tenderness: There is no abdominal tenderness. There is no guarding or rebound. Musculoskeletal: General: No swelling. Normal range of motion. Right lower leg: No edema. Left lower leg: No edema. Neurological: Mental Status: She is alert and oriented to person, place, and time. Skin: General: Skin is warm and dry. Psychiatric: Mood and Affect: Mood normal. Behavior: Behavior normal. Vitals and nursing note reviewed. Exam conducted with a scallop binder present. Vitals: Estimated body mass index is 24.37 kg/m as calculated from the following: Height as of 06/11/23: 5' 1 . Weight as of this encounter: 129 lb. BP: 90/60 Patient's last menstrual period was 06/09/2024 (approximate). ASSESSMENT & PLAN ICD-10-CM 1. Well woman exam with routine gynecological exam Z01.419 Pap Smear HPV DNA probe, amplified POCT urinalysis dipstick manually resulted 2. Urinary tract infection with hematuria, site unspecified N39.0 Urine culture R31.9 Annual Exam: Patient presents today for an annual exam. Patient states she is doing well and has complaints of vaginal discharge cultures obtained rx for flagyl faxed to pharmacy. Pt still having bleeding after ablation, pt given labs and ultrasound to have obtained. Pt to be scheduled for robotic hysterectomy. Pap was obtained without difficulty. Orders Placed This Encounter Procedures HPV DNA probe, amplified Urine culture US Pelvis w/ TV CBC and differential TSH hCG, quantitative, Protime-INR T4, free APTT Hemoglobin A1c CHLAMYDIA TRACHOMATIS (GENITO/STI) Neisseria gonorrhea DNA probe, direct POCT urinalysis dipstick manually resulted Follow Up: Patient is to return in one year for annual unless needed otherwise. Documented by Marcella Rios LPN on behalf of: Derik Dawson DO documented in this encounter [facility] History of Present illness Narrative [...] Problems Past Medical History: Diagnosis Date Asthma ([facility]) Cerebrovascular accident ([facility]) H/O recurrent urinary tract infection (normal spontaneous [...] Never Past Surgical History: Procedure Laterality Date [place] MEDICATION MANAGEMENT asthma [place] MEDICATION MANAG[place] Zyrtec- seasonal allergies VAGINAL DELIVERY [...] of: LAURA Vela documented in this encounter [facility] Evaluation note Note Date & Type Note Facility Evaluation note No assessment information availa [facility] Work Phone: Evaluation note Note Date & Type Note Facility Evaluation note Diagnosis Vaginal discharge Leukorrhea, not specified as infective STD exposure Urinary tract infection without hematuria, site unspecified Dysuria Yeast infection documented in this encounter [facility] Evaluation note Note Date & Type Note Facility Evaluation note Diagnosis Onset Date Resolution Influenza A acute March 23, 2024 9:11am [facility] Work Phone: Evaluation note Note Date & Type Note Facility Evaluation note Diagnosis Well woman exam with routine gynecological exam Routine gynecological examination Urinary tract infection with hematuria, site unspecified Menorrhagia with regular cycle Vaginal discharge Leukorrhea, not specified as infective Possible exposure to STD documented in this encounter [facility] Healthcare Summary Purpose Family History Relationship Condition Age at Onset Recorded Date/T jessica mother Hypertension Unknown Advance Directives Advance Directive Response Recorded Date/ Time Advance Directives No April 03, 2023 8:55am Chief Complaint and Reason for Visit Chief Complaint Vaginal discharge Chief Complaint Admit Date exposure to flu, cough, congestion Janua 2024 9:11am Reason for Visit Admit Date Influenza A March 23, 2024 9 :11am Additional Source Comments INFORMATION SOURCE (unrecogn ized section and content) DATE CREATED AUTHOR 05/14/2022 [facility] DATE CREATED AUTHOR AUTHOR'S ORGANIZ ATION 04/04/2023 [facility] DATE CREATED AUTHOR AUTHOR'S ORGANIZ ATION 03/29/2024 [facility] DATE CREATED AUTHOR AUTHOR'S ORGANIZ ATION 06/17/2024 [facility] EPIC Care Teams (unrecognized sec tion and content) Team Status: Inactive Member Role Status Dates Karissa Preston APRN Attending Provider Active Start: March 28, 2023 End: March 28, 2023 Team Status: Active Member Role Status Dates Gustavo Jimenez MD Primary Care Provider Active Team Status: Inactive Member Role Status Dates Gustavo Jimenez MD Primary Care Provider Active Start: March 23, 2024 End: March 23, 2024 Nena Dee APRN Attending Provider Active Start: March 23, 2024 End: March 23, 2024 Goals (unrecognized section and content) Goals may be documented in a n alternate sectionGoals may be documented in an alternate section Reason for Visit (unrecogniz ed section and content) Reason Comments yeast infection/UTI Reason Comments Well Women Visit FOR RECORDS PERTAINING TO PATIENTS WHO ARE [...] BE BASED ON THE PRIMARY CLINICAL RECORDS. [employer] provides no warranty or guarantee of the accuracy or completeness of information in this document.
[2024-10-11 17:56] LABS: Iron 65.0 ug/dL (50.0-170.0)
== END 2024-10-11 16:55 | disposition home or self-care (01) ==
PROVIDERS: PCP Family Medicine; Visit Provider Family Medicine
DX: Z00.00 Encounter for general adult medical examination without abnormal findings (principal)
CPT/HCPCS: 36415; 80053; 80061; 83036; 83540; 84436; 84443; 84481; 85025; 86376; 86800